=== PATIENT | male | born 1940 | race Caucasian/White ===

== ENCOUNTER → 2016-05-25 | Outpatient (CLI) | payer MEDICARE, BC ==
[2016-05-25 10:34] LABS: Anion Gap 14 mmol/L; Blood Urea Nitrogen 52 mg/dL (9-20); Carbon Dioxide 23 mmol/L (22-30); Chloride 103 mmol/L (98-107); Glucose 220 mg/dL (74-99); Non-African American GFR(MDRD) 57 (>60 ml/min/1.73 sqM); Potassium 6.1 mmol/L (3.5-5.1); Sodium 140 mmol/L (137-145)
== END | disposition home or self-care (01) ==
LOC: LABWHC1 09:16
PROVIDERS: ATTEND Internal Medicine Cardiovascular Disease
DX: I50.9 Heart failure, unspecified (principal)
CPT/HCPCS: 36415; 80048; 83880

== ENCOUNTER → 2016-06-04 | Outpatient (CLI) | payer MEDICARE, BC | END | disposition home or self-care (01) | LOC: LABWHC1 09:04 | PROVIDERS: ATTEND Internal Medicine Cardiovascular Disease | DX: E87.5 Hyperkalemia (principal) | CPT/HCPCS: 36415; 84132 ==

== ENCOUNTER → 2016-06-18 | Outpatient (CLI) | payer MEDICARE, BC ==
[2016-06-18 09:18] LABS: Anisocytosis Slight; CHCM 31.8; HCT 45.3 % (39.0-53.0); HDW 3.35; HGB 14.2 gm/dL (13.0-17.5); Hypochromasia Slight; MCH 24.7 pg (25.0-35.0); MCHC 31.5 g/dL (31.0-37.0); MCV 78.6 fL (80.0-100.0); Mean Platelet Volume 8.1; Microcytosis Slight; RBC 5.76 m/uL (4.30-5.90); WBC 5.8 k/uL (3.8-10.6)
[2016-06-18 09:44] LABS: Anion Gap 10 mmol/L; Blood Urea Nitrogen 44 mg/dL (9-20); Carbon Dioxide 26 mmol/L (22-30); Chloride 105 mmol/L (98-107); Non-African American GFR(MDRD) >60 (>60 ml/min/1.73 sqM); Potassium 4.9 mmol/L (3.5-5.1); Sodium 141 mmol/L (137-145)
== END | disposition home or self-care (01) ==
LOC: LABPAT 08:49
PROVIDERS: ATTEND Internal Medicine Cardiovascular Disease
DX: Z01.812 Encounter for preprocedural laboratory examination (principal); I25.10 Atherosclerotic heart disease of native coronary artery without angina pectoris
CPT/HCPCS: 80051; 82565; 84520; 85027

== ENCOUNTER 2016-06-29 10:49 | Day surgery (SDC) | payer MEDICARE, BC ==
[2016-06-23 17:31] VITALS: BMI 21.9
[~2016-06-29 10:49] MED LIST: ALPRAZolam 0.25 MG TAB PO PRN; ALPRAZolam 0.5 MG TAB PO PRN; ASPIRIN 325 MG TAB PO STA; ATORVASTATIN 80 MG TAB PO STA; NITROGLYCERIN SL TABS 0.4 MG TAB SUBLINGUAL PRN; SODIUM CHLORIDE 0.9% 1,000 ML in EMPTY BAG 1 BAG IV ONE
[2016-06-29 11:25] LABS: Glucose,Whole Blood 265 mg/dL (75-99)
[2016-06-29] MEDS ORDERED: INSULIN LISPRO (humaLOG) 300 UNIT/3 ML VIAL SQ ONE (11:26)
[2016-06-29 11:57] LABS: INR 1.1 (<1.1); Prothrombin Time 10.9 sec (9.0-12.0)
[2016-06-29] MEDS ORDERED: LIDOCAINE 2% INJ 20 MG/ML (20 ML MDV) ONE (14:13)
[2016-06-29] MEDS ORDERED: fentaNYL (PF) 50 MCG/ML 2 ML AMP ONE (14:20)
[2016-06-29] MEDS ORDERED: MIDAZOLAM 2 MG/2 ML VIAL ONE (14:20)
[2016-06-29] MEDS ORDERED: LIDOCAINE 2% INJ 20 MG/ML SQ ONE (14:24)
[2016-06-29] MEDS ORDERED: MIDAZOLAM 2 MG/2 ML VIAL IV ONE (14:24)
[2016-06-29] MEDS ORDERED: fentaNYL (PF) 50 MCG/ML 2 ML AMP IV ONE (14:24)
[2016-06-29] MEDS ORDERED: IOHEXOL 350 MG/ML 100 ML BOTTLE INJ ONE (14:55)
[2016-06-29] MEDS ORDERED: RX INFO: IV CONTRAST WAS GIVEN 1 EACH MISC MISCELLANE PRN (15:22)
[2016-06-29] MEDS ORDERED: SODIUM CHLORIDE 0.9% 1,000 ML IV SCH (15:30)
[2016-06-29 19:52] VITALS: RESP 16; TEMP 97.1
[2016-06-29 20:01] VITALS: BP 125/80; PULSE 68
--- NOTE | 2016-06-29 22:23 | CC ---
Mr. Vaca is a 75-year-old gentleman who recently was found to have cardiomyopathy with severely impaired left ventricular systolic function. In view of that, the patient was advised cardiac catheterization to rule out any significant progression in the coronary artery disease. PROCEDURE: Right groin was prepped and draped in the usual manner and the skin was infiltrated with 2% Xylocaine. The right femoral artery was entered using Seldinger technique. A #6 [place] sheath was placed in. Selective coronary angiography was then performed in multiple projections and left ventricular pressures were obtained. Patient tolerated the procedure well. Sheath was removed and good hemostasis was achieved with the use of Angio-Seal. HEMODYNAMICS: Left ventricular end-diastolic pressure was 8 mmHg to 12 mmHg prior to angiography. No gradient was noted across the aortic valve. SELECTIVE CORONARY ANGIOGRAPHY: Left main coronary artery is normal and patent. LAD is a good-caliber blood vessel and there is evidence of a stent in the mid LAD. There is a mild irregularity of about 30% stenosis in the mid LAD. Distal LAD is normal. Circumflex coronary artery is a good-caliber blood vessel and gives rise to obtuse marginal branch. Circumflex coronary artery and its branches are normal. Right coronary artery is a relatively small-caliber blood vessel and there is evidence of a patent stent in the distal LAD. There is a small-sized PLV branch which has a 70% ostial stenosis. PDA branch is normal. FINAL IMPRESSION: Patient has mild coronary artery disease with 30% stenosis in the mid left anterior descending artery and 70% stenosis in the small-size posterolateral ventricular branch of the right coronary artery. The stents are patent. We will continue the patient on medical treatment.
== END 2016-06-29 19:40 | disposition home or self-care (01) ==
LOC: CATHCVL 10:49 → 3OBS 14:47 → CATHCVL 19:40
PROVIDERS: ATTEND Internal Medicine Cardiovascular Disease
DX: I25.10 Atherosclerotic heart disease of native coronary artery without angina pectoris (principal); Z95.5 Presence of coronary angioplasty implant and graft; I42.9 Cardiomyopathy, unspecified; I11.0 Hypertensive heart disease with heart failure; I50.9 Heart failure, unspecified; E78.2 Mixed hyperlipidemia; I48.91 Unspecified atrial fibrillation; Z79.01 Long term (current) use of anticoagulants; Z79.899 Other long term (current) drug therapy; Z87.891 Personal history of nicotine dependence
CPT/HCPCS: 93458; 85610; C1760; C1894; C1769; J2001; J2250; Q9967; J3010

== ENCOUNTER → 2018-12-19 | Outpatient (CLI) | payer MEDICARE, BC ==
[2018-12-19 18:02] LABS: African American GFR (CKD) 66.7 (60.0-200.0); Anion Gap 12.8 mmol/L (4.00-12.00); BUN/Creat Ratio 27.5 Ratio (12.00-20.00); Calcium 9.6 mg/dL (8.7-10.3); Carbon Dioxide 19.2 mmol/L (21.6-31.8); Potassium 5.2 mmol/L (3.5-5.5)
== END | disposition home or self-care (01) ==
LOC: LABWHC1 08:49
PROVIDERS: ATTEND Internal Medicine Cardiovascular Disease
DX: I50.9 Heart failure, unspecified (principal)
CPT/HCPCS: 36415; 80048

== ENCOUNTER 2019-12-13 17:56 | Inpatient (IN) | payer MEDICARE, BC ==
[2019-12-13 18:11] LABS: Glucose,Whole Blood 207 mg/dL (75-99)
[2019-12-13 18:13] LABS: Basophils # (A) 0.1 k/uL (0-0.2); Basophils % (A) 1 %; Eosinophils # (A) 0.3 k/uL (0-0.7); Eosinophils % (A) 4 %; HCT 44.3 % (39.0-53.0); HGB 14.4 gm/dL (13.0-17.5); Lymphocytes % (A) 22 %; MCH 29.2 pg (25.0-35.0); MCHC 32.6 g/dL (31.0-37.0); MCV 89.6 fL (80.0-100.0); Mean Platelet Volume 9.9; Monocytes # (A) 0.7 k/uL (0-1.0); Monocytes % (A) 8 %; Neutrophils # (A) 5.5 k/uL (1.3-7.7); Neutrophils % (A) 63 %; Platelet Count 159 k/uL (150-450); RBC 4.94 m/uL (4.30-5.90); RDW 13.4 % (11.5-15.5); WBC 8.9 k/uL (3.8-10.6)
[2019-12-13 18:22] LABS: Partial Thromboplastin Time 24.5 sec (22.0-30.0); Prothrombin Time 10.3 sec (9.0-12.0)
[2019-12-13 18:25] LABS: Albumin 4.2 g/dL (3.5-5.0); Calcium 9.4 mg/dL (8.4-10.2); Total Bilirubin 0.7 mg/dL (0.2-1.3); Total Protein 7.1 g/dL (6.3-8.2)
--- NOTE | 2019-12-13 18:25 | ED ---
General Adult HPI - General Chief complaint: Neuro Symptoms/Deficit Stated complaint: rt side weakness Time Seen by Provider: 12/13/19 18:00 Source: patient, EMS Mode of arrival: EMS Limitations: no limitations - History of Present Illness Initial comments: Patient is a 79-year-old male past medical history of A. fib, COPD, diabetes, and hypertension who presents emergency room with reported right-sided facial numbness. Patient reports that the numbness was present yesterday. He went to bed and awoke this morning it was gone. Patient reports around 4 PM it started again. Numbness also includes patient's right upper extremity. No history of CVA or TIA in the past. Patient is on anticoagulation for his A. fib. He denies any weakness in his extremities. No headaches or visual changes. No speech difficulties. Patient denies any chest pain or shortness of breath. Upon arrival to the hospital, it was was noted that the patient was significant bradycardic. Blood pressure stable. He reports that he was recently out of his metoprolol. Normally takes a half dose daily. His primary care physician called in a refill of his prescription for which she started restarted 3 days ago. Denies taking excess of his medications. Denies any new medications. No other alleviating, precipitating or modifying factors - Related Data Home Medications Medication Instructions Recorded Confirmed Fluticasone Nasal [place] [Flonase 2 spray EA NOSTRIL DAILY PRN 04/13/16 12/13/19 Nasal Bradford] Losartan Potassium [Cozaar] 50 mg PO BID 04/13/16 12/13/19 Metoprolol Tartrate [Lopressor] 25 mg PO DAILY 04/13/16 12/13/19 Albuterol Sulfate [Ventolin HFA] 2 puff INHALATION RT-Q6H PRN 06/23/16 12/13/19 Furosemide [Lasix] 40 mg PO DAILY 06/07/17 12/13/19 Apixaban [Eliquis] 5 mg PO BID 12/13/19 12/13/19 Atorvastatin [Lipitor] 40 mg PO DAILY 12/13/19 12/13/19 Cholecalciferol [Vitamin D3 (25 1,000 unit PO DAILY 12/13/19 12/13/19 Mcg = 1000 Iu)] Insulin Glargine,Hum.rec.anlog 15 unit SQ DAILY 12/13/19 12/13/19 [Lantus Solostar] Pioglitazone [Actos] 15 mg PO DAILY 12/13/19 12/13/19 metFORMIN HCL [Glucophage] 500 mg PO BID-W/MEALS 12/13/19 12/13/19 Allergies Allergy/AdvReac Type Severity Reaction Status Date / Time lanolin Allergy Rash/Hives Verified 12/13/19 20:25 pine Allergy Rash/Hives,skin Uncoded 12/13/19 18:02 tenderness Review of Systems ROS Statement: Those systems with pertinent positive or pertinent negative responses have been documented in the HPI. ROS Other: All systems not noted in ROS Statement are negative. Past Medical History Past Medical History: Atrial Fibrillation, Heart Failure, COPD, Diabetes Mellitus, Hearing Disorder / Deafness, Hyperlipidemia, Hypertension, Pneumonia, Prostate Disorder Additional Past Medical History / Comment(s): Gallstone pancreatitis, choledocholithiasi, increased bilirubin/jaundic, yellow jaundice as a child, nonsustained VTach, diabetes-was on insulin-recently taken off diabetic medication after hypoglycemic episode, BPH, hiatal hernia, sinusitis, L eye very limited vision r/t injury as teen, hiatal henia, R eardrum with hole in it- hears very little out of that ear, chronic back pain. History of Any Multi-Drug Resistant Organisms: None Reported Past Surgical History: Appendectomy, Cholecystectomy, Hernia Repair Additional Past Surgical History / Comment(s): ERCP, colonoscopy-normal, 14 hernia repairs, 1998 and 1999 cardiac stents, L arm fractured and repaired with ana, L eye surgery due to trauma, bilateral cataract removal with lens implants. Past Anesthesia/Blood Transfusion Reactions: No Reported Reaction Additional Past Anesthesia/Blood Transfusion Reaction / Comment(s): Pt received blood in the 1960's and had a rash develop. Past Psychological History: No Psychological Hx Reported Smoking Status: Never smoker Past Alcohol Use History: None Reported Past Drug Use History: None Reported - Past Family History Mother Family Medical History: Respiratory Disorder Additional Family Medical History / Comment(s): Mother had lung disease that was attributed to having to light the family home with kerosene lamps. She at the age of 86yrs. Father Family Medical History: Myocardial Infarction ([place]) Additional Family Medical History / Comment(s): Father of a [place] at the age of 44yrs. Brother(s) Additional Family Medical History / Comment(s): CABG General Exam Limitations: no limitations General appearance: alert, in no apparent distress Head exam: Present: atraumatic, normocephalic, normal inspection Eye exam: Present: normal appearance, PERRL, EOMI. Absent: scleral icterus, conjunctival injection, periorbital swelling ENT exam: Present: normal exam, mucous membranes moist Neck exam: Present: normal inspection. Absent: tenderness, meningismus, lymphadenopathy Respiratory exam: Present: normal lung sounds bilaterally. Absent: respiratory distress, wheezes, rales, rhonchi, stridor Cardiovascular Exam: Present: bradycardia, irregular rhythm, normal heart sounds. Absent: systolic murmur, diastolic murmur, rubs, gallop, clicks GI/Abdominal exam: Present: soft, normal bowel sounds. Absent: distended, tenderness, guarding, rebound, rigid Extremities exam: Present: normal inspection, full ROM, normal capillary refill. Absent: tenderness, pedal edema, joint swelling, calf tenderness Back exam: Present: normal inspection Neurological exam: Present: alert, oriented X3, CN II-XII intact, other (tongue is midline, speech is clear, face is symmetric. NIH 0. Intact sensation in all 4 extremities. ) Psychiatric exam: Present: normal affect, normal mood Skin exam: Present: warm, dry, intact, normal color. Absent: rash Course Vital Signs 12/13/19 12/13/19 12/13/19 18:00 19:04 19:49 Temperature 97.4 F L Pulse Rate 38 L 33 L 44 L Respiratory 18 18 16 Rate Blood Pressure 144/115 114/99 177/113 O2 Sat by Pulse 98 97 97 Oximetry 12/13/19 12/13/19 20:00 21:30 Temperature Pulse Rate 44 L 53 L Respiratory 18 16 Rate Blood Pressure 132/110 144/66 O2 Sat by Pulse 96 97 Oximetry - Reevaluation(s) Reevaluation #1: 12/13/[address] victoriano Rebollar about the patient's case. Recommended hydralazine for hypertension. Also recommended treatment for hyperkalemia which the patient received. EKG Findings - EKG Comments: EKG Findings:: EKG demonstrates a flutter with the ventricular rate of 33. QRS 122. QTC of 359. No acute ST segment elevation. PVCs present Medical Decision Making - Medical Decision Making Upon arrival patient is placed into room 5. A thorough history and physical exam was performed. Patient is notably bradycardic. EKG is performed which demonstrates A. fib with a slow ventricular response. A shunt is hypertensive at this time therefore laboratory studies are obtained and the chest x-rays performed. Lab studies are remarkable for a potassium of 6. Patient was given an amp of dextrose, 10 units of insulin and calcium chloride. I did discuss the case with Dr. Hilton at 2009 who recommended holding the patient's medications and treating his hyperkalemia. I also discussed the case with Roxy of [facility] who agreed to admit the patient knowing of his right-sided subjective facial paresthesias. I will consult cardiology. Lytes will be rec hecked at 10:00 pm. Patient agreed to this treatment plan and is currently awaiting a bed on the floor - Lab Data Result diagrams: 12/15/19 07:41 12/15/19 07:41 Lab Results 12/13/19 12/13/19 12/13/19 Range/Units 18:06 18:06 18:06 WBC 8.9 (3.8-10.6) k/uL RBC 4.94 (4.30-5.90) m/uL Hgb 14.4 (13.0-17.5) gm/dL Hct 44.3 (39.0-53.0) % MCV 89.6 (80.0-100.0) fL MCH 29.2 (25.0-35.0) pg MCHC 32.6 (31.0-37.0) g/dL RDW 13.4 (11.5-15.5) % Plt Count 159 (150-450) k/uL Neutrophils % 63 % Lymphocytes % 22 % Monocytes % 8 % Eosinophils % 4 % Basophils % 1 % Neutrophils # 5.5 (1.3-7.7) k/uL Lymphocytes # 2.0 (1.0-4.8) k/uL Monocytes # 0.7 (0-1.0) k/uL Eosinophils # 0.3 (0-0.7) k/uL Basophils # 0.1 (0-0.2) k/uL PT 10.3 (9.0-12.0) sec INR 1.0 (<1.2) APTT 24.5 (22.0-30.0) sec Sodium 136 L (137-145) mmol/L Potassium 6.0 H (3.5-5.1) mmol/L Chloride 107 (98-107) mmol/L Carbon Dioxide 19 L (22-30) mmol/L Anion Gap 10 mmol/L BUN 49 H (9-20) mg/dL Creatinine 1.38 H (0.66-1.25) mg/dL Est GFR (CKD-EPI)AfAm 56 (>60 ml/min/1.73 sqM) Est GFR (CKD-EPI)NonAf 48 (>60 ml/min/1.73 sqM) Glucose 205 H (74-99) mg/dL POC Glucose (mg/dL) (75-99) mg/dL POC Glu Medical Secretary ID Calcium 9.4 (8.4-10.2) mg/dL Magnesium (1.6-2.3) mg/dL Total Bilirubin 0.7 (0.2-1.3) mg/dL AST 22 (17-59) U/L ALT 14 (4-49) U/L Alkaline Phosphatase 98 (38-126) U/L Creatine Kinase 57 (55-170) U/L Troponin I (0.000-0.034) ng/mL NT-Pro-B Natriuret Pep pg/mL Total Protein 7.1 (6.3-8.2) g/dL Albumin 4.2 (3.5-5.0) g/dL TSH (0.465-4.680) mIU/L Free T4 (0.78-2.19) ng/dL 12/13/19 12/13/19 12/13/19 Range/Units 18:06 18:06 18:06 WBC (3.8-10.6) k/uL RBC (4.30-5.90) m/uL Hgb (13.0-17.5) gm/dL Hct (39.0-53.0) % MCV (80.0-100.0) fL MCH (25.0-35.0) pg MCHC (31.0-37.0) g/dL RDW (11.5-15.5) % Plt Count (150-450) k/uL Neutrophils % % Lymphocytes % % Monocytes % % Eosinophils % % Basophils % % Neutrophils # (1.3-7.7) k/uL Lymphocytes # (1.0-4.8) k/uL Monocytes # (0-1.0) k/uL Eosinophils # (0-0.7) k/uL Basophils # (0-0.2) k/uL PT (9.0-12.0) sec INR (<1.2) APTT (22.0-30.0) sec Sodium (137-145) mmol/L Potassium (3.5-5.1) mmol/L Chloride (98-107) mmol/L Carbon Dioxide (22-30) mmol/L Anion Gap mmol/L BUN (9-20) mg/dL Creatinine (0.66-1.25) mg/dL Est GFR (CKD-EPI)AfAm (>60 ml/min/1.73 sqM) Est GFR (CKD-EPI)NonAf (>60 ml/min/1.73 sqM) Glucose (74-99) mg/dL POC Glucose (mg/dL) (75-99) mg/dL POC Glu Medical Secretary ID Calcium (8.4-10.2) mg/dL Magnesium 2.1 (1.6-2.3) mg/dL Total Bilirubin (0.2-1.3) mg/dL AST (17-59) U/L ALT (4-49) U/L Alkaline Phosphatase (38-126) U/L Creatine Kinase (55-170) U/L Troponin I <0.012 (0.000-0.034) ng/mL NT-Pro-B Natriuret Pep 2280 pg/mL Total Protein (6.3-8.2) g/dL Albumin (3.5-5.0) g/dL TSH 5.130 H (0.465-4.680) mIU/L Free T4 2.42 H (0.78-2.19) ng/dL 12/13/19 Range/Units 18:10 WBC (3.8-10.6) k/uL RBC (4.30-5.90) m/uL Hgb (13.0-17.5) gm/dL Hct (39.0-53.0) % MCV (80.0-100.0) fL MCH (25.0-35.0) pg MCHC (31.0-37.0) g/dL RDW (11.5-15.5) % Plt Count (150-450) k/uL Neutrophils % % Lymphocytes % % Monocytes % % Eosinophils % % Basophils % % Neutrophils # (1.3-7.7) k/uL Lymphocytes # (1.0-4.8) k/uL Monocytes # (0-1.0) k/uL Eosinophils # (0-0.7) k/uL Basophils # (0-0.2) k/uL PT (9.0-12.0) sec INR (<1.2) APTT (22.0-30.0) sec Sodium (137-145) mmol/L Potassium (3.5-5.1) mmol/L Chloride (98-107) mmol/L Carbon Dioxide (22-30) mmol/L Anion Gap mmol/L BUN (9-20) mg/dL Creatinine (0.66-1.25) mg/dL Est GFR (CKD-EPI)AfAm (>60 ml/min/1.73 sqM) Est GFR (CKD-EPI)NonAf (>60 ml/min/1.73 sqM) Glucose (74-99) mg/dL POC Glucose (mg/dL) 207 H (75-99) mg/dL POC Glu Medical Secretary ID Ace Drake Calcium (8.4-10.2) mg/dL Magnesium (1.6-2.3) mg/dL Total Bilirubin (0.2-1.3) mg/dL AST (17-59) U/L ALT (4-49) U/L Alkaline Phosphatase (38-126) U/L Creatine Kinase (55-170) U/L Troponin I (0.000-0.034) ng/mL NT-Pro-B Natriuret Pep pg/mL Total Protein (6.3-8.2) g/dL Albumin (3.5-5.0) g/dL TSH (0.465-4.680) mIU/L Free T4 (0.78-2.19) ng/dL Disposition Clinical Impression: Hypertension, Bradycardia, Chronic a-fib Disposition: ADMITTED IP TO THIS HOSP Condition: Serious Is patient prescribed a controlled substance at d/c from ED?: No Decision to Admit Reason: Admit from EC Decision Date: 12/13/19 Decision Time: 20:35
--- NOTE | 2019-12-13 18:27 | CT ---
EXAMINATION TYPE: CT brain wo con DATE OF EXAM: 12/13/2019 COMPARISON: INDICATION: Neuro deficit, Rt side weakness reoccur ing yesterday and today. DLP: 1062.4 mGycm, Automated exposure control for dose reduction was used. CONTRAST: None CT of the brain is performed utilizing 3 mm thick sections through the posterior fossa and 3 mm thick sections through the remaining calvarium. Study is performed within 24 hours of arrival to the hosp ital. No abnormal hyperdensity is present to suggest an acute intracranial hemorrhage. No mass lesion is evident. No acute infarcts are evident. Minimal periventricular white matter hypodensity is present suggesting chronic white matter ischemic changes. Ventricles and sulci are prominent for the patient age. Paranasal sinuses and mastoid air cells within the [id number] are clear. There is been a prior rig ht mastoidectomy. IMPRESSIONS: 1. Atrophy with periventricular white matter ischemic type changes. 2. No acute intracranial process.
--- NOTE | 2019-12-13 18:40 | XR ---
EXAMINATION TYPE: XR chest 2V DATE OF EXAM: 12/13/2019 COMPARISON: 06/13/2017 INDICATION: Altered mental status TECHNIQUE: Frontal and lateral views of the chest are obtained. FINDINGS: The heart size is slightly prominent. The pulmonary vasculature is normal. The lungs are clear. IMPRESSION: 1. Mild cardiomegaly.
[2019-12-13] MEDS ORDERED: CALCIUM CHLORIDE 100 MG/ML 10 ML SYRINGE IVP STA (19:16)
[2019-12-13] MEDS ORDERED: INSULIN REGULAR 100 UNIT/ML VIAL IV ONE (19:17)
[2019-12-13] MEDS ORDERED: DEXTROSE 50% SYRINGE 50 ML IVP STA (19:17)
[2019-12-13 20:00] LABS: Magnesium 2.1 mg/dL (1.6-2.3)
[2019-12-13] MEDS ORDERED: NALOXONE 0.4 MG/ML 1 ML VIAL IV PRN (20:36)
[2019-12-13 20:50] LABS: Appearance,Urine Clear (Clear); Bilirubin,Urine Negative (Negative); Blood,Urine Small (Negative); Color,Urine Yellow; Glucose,Urine (UA) 3+ (Negative); Hyaline Casts,Urine 23 /lpf (0-2); Ketones,Urine Negative (Negative); Leukocyte Esterase,Urine Trace (Negative); Mucus,Urine Rare /hpf; Nitrite,Urine Negative (Negative); Protein,Urine Negative (Negative); RBC,Urine 16 /hpf (0-5); Specific Gravity,Urine 1.012 (1.001-1.035); Urobilinogen,Urine <2.0 mg/dL (<2.0); WBC,Urine 2 /hpf (0-5)
[2019-12-13 21:13] LABS: T4, Free (Free Thyroxine) 2.42 ng/dL (0.78-2.19)
[2019-12-13 21:57] LABS: Calcium 10.9 mg/dL (8.4-10.2); Potassium 5.4 mmol/L (3.5-5.1)
[2019-12-14 05:54] LABS: HCT 41.6 % (39.0-53.0); HGB 13.6 gm/dL (13.0-17.5); MCH 29.2 pg (25.0-35.0); MCHC 32.7 g/dL (31.0-37.0); MCV 89.3 fL (80.0-100.0); Mean Platelet Volume 9.9; Platelet Count 116 k/uL (150-450); RBC 4.65 m/uL (4.30-5.90); RDW 13.5 % (11.5-15.5)
[2019-12-14 06:06] LABS: Calcium 9.8 mg/dL (8.4-10.2); Potassium 4.6 mmol/L (3.5-5.1)
[2019-12-14 06:23] LABS: Basophils # (M) 0.14 k/uL (0-0.2); Eosinophils # (M) 0.21 k/uL (0-0.7); Lymphocytes # (M) 1.26 k/uL (1.0-4.8); Monocytes # (M) 0.56 k/uL (0-1.0); Neutrophils # (M) 4.83 k/uL (1.3-7.7); Neutrophils % (M) 69 %; Nucleated Red Blood Cells 0 /100 WBC (0-0); Total Cells Counted 100
[2019-12-14 06:31] LABS: Glucose,Whole Blood 135 mg/dL (75-99)
[2019-12-14] MEDS: ATORVASTATIN 40 MG TAB PO SCH (09:12)
[2019-12-14] MEDS: LOSARTAN 50 MG TAB PO SCH ×2 (09:12→22:53)
[2019-12-14] MEDS: FUROSEMIDE 40 MG TAB PO SCH (09:12)
[2019-12-14] MEDS: INSULIN DETEMIR (LEVEMIR) 100 UNIT/ML SYR SQ SCH (09:12)
[2019-12-14 12:08] LABS: Glucose,Whole Blood 210 mg/dL (75-99)
[2019-12-14] MEDS: INSULIN ASPART (NovoLOG) 100 UNIT/ML VIAL SQ SCH ×3 (12:35→23:03)
--- NOTE | 2019-12-14 13:26 | CONS ---
CONSULTATION Mr. Vaca is a 79-year-old, who is admitted to hospital with a history of atrial fibrillation, diabetes, hypertension, who presented to hospital primarily with numbness involving the right side of his face and right arm. Had a CT scan of the brain that ruled out an acute CVA. The patient had an issue with his right clavicle and maybe the right arm numbness is somewhat related to it. At the time of my evaluation this morning, patient appears comfortable at rest. Ambulating without any problems. He remains in atrial flutter with very low ventricular rate. His heart rate is in the 30s. This morning the heart rate had improved to the 60s. The patient was on Lopressor at home. We stopped it on this admission. I have been consulted because of the atrial fibrillation with slow ventricular rate. The patient does not have any syncope and I believe the atrial fibrillation is not responsible for his neurological symptoms. CVA evaluation is to be done by the neurologist. PAST MEDICAL HISTORY: Significant for diabetes, hypertension, atrial fibrillation. MEDICATIONS: Include Flonase, Ventolin, Glucophage, Lipitor, Actos, Lasix, Eliquis, Lopressor, Cozaar, insulin. ALLERGIES: THE PATIENT IS ALLERGIC TO LANOLIN AND . FAMILY HISTORY: Is negative for premature coronary artery disease. SOCIAL HISTORY: Negative for smoking, EtOH abuse, or drug abuse. REVIEW OF SYSTEMS: HEENT is unremarkable. Cardiac as described above. Respiratory as described above. GI negative. : Negative. Allergy/Immunology: Negative. Skin negative. Musculoskeletal negative. Endocrine negative. Derm negative. Constitutional negative. ONCOLOGICAL: Negative. ALINING INSPECTOR significant for numbness involving face and right arm. PHYSICAL EXAMINATION: 1. On exam heart rate is 60 beats per minute. Blood pressure is 136, respiratory rate. O2 saturation is 97% on room air. There is no jugular venous distention. Chest exam reveals good air entry bilaterally. Heart sounds irregular rhythm, systolic murmur at the apex. Abdomen is soft. Exam of extremities did not reveal any edema. Peripheral pulses are felt. ALINING INSPECTOR exam did not reveal focal neurological deficits. LABORATORY DATA: Lab show a hemoglobin of 13.6, platelet count is 116, potassium is 4.6, creatinine 0.1. Tropes are negative. I do not see a TSH. ASSESSMENT: 1. Atrial fibrillation with a slow ventricular rate. The patient has permanent atrial fibrillation. 2. Numbness involving right side of the face and arm. Rule out cerebrovascular accident . Neurology is on the case. 3. History of hypertension. MMODL / IJN: [id number] /
[2019-12-14] MEDS ORDERED: FLUTICASONE 50MCG/SPRAY NASAL 16GM EA NOSTRIL PRN (14:36)
[2019-12-14] MEDS ORDERED: ALBUTEROL NEBULIZED 2.5 MG/3 ML INHALATION PRN (14:36)
[2019-12-14] MEDS ORDERED: ALPRAZolam 0.25 MG TAB PO PRN (14:46)
[2019-12-14] MEDS ORDERED: HYDROcodone/APAP 5-325MG 1 EACH TAB PO PRN (14:46)
--- NOTE | 2019-12-14 16:08 | US ---
EXAMINATION TYPE: US carotid duplex BILAT DATE OF EXAM: 12/14/2019 COMPARISON: US CLINICAL HISTORY: stroke. Weakness right side EXAM MEASUREMENTS: RIGHT: Peak Systolic Velocity (PSV) cm/sec ----- Right CCA: 63.6 ----- Right ICA: 103.4 ----- Right ECA: 121.0 ICA/CCA ratio: 1.6 RIGHT: End Diastole cm/sec ----- Right CCA: 16.4 ----- Right ICA: 21.9 ----- Right ECA: 0.0 LEFT: Peak Systolic Velocity (PSV) cm/sec ----- Left CCA: 70.6 ----- Left ICA: 129.1 ----- Left ECA: 85.3 ICA/CCA ratio: 1.8 LEFT: End Diastole cm/sec ----- Left CCA: 10.4 ----- Left ICA: 30.5 ----- Left ECA: 0.0 VERTEBRALS (direction of flow): Right Vertebral: Antegrade Left Vertebral: Antegrade Rhythm: Arrhythmia Heterogeneous plaque bilaterally, left ICA tortuous IMPRESSION: There is antegrade flow in the vertebral arteries. Images and measurements suggest at le ast 50% stenosis in both internal carotid arteries. Bilateral moderate multifocal plaque formation. Criteria for Assigning % of Stenosis / Diameter reduction (Estimation based on the indirect measurements of the internal carotid artery velocities (ICA PSV). 1. Normal (no stenosis)=ICA PSV < 125 cm/s: ratio < 2.0: ICA EDV<40 cm/s. 2. Less than 50% stenosis=ICA PSV < 125 cm/s: ratio < 2.0: ICA EDV<40 cm/s. 3. 50 to 69% stenosis=ICA PSV of 125 to 230 cm/s: ration 2.0 ? 4.0: ICA EDV 40-100 cm/s. 4. Greater than 70% stenosis to near occlusion= ICA PSV > 230 cm/s: ratio > 4.0: ICA EDV > 100 cm/s. 5. Near occlusion= ICA PSV velocities may be low or undetectable: variable ratio and ICA EDV. 6. Total occlusion=unable to detect flow.
--- NOTE | 2019-12-14 16:47 | HP ---
HISTORY AND PHYSICAL DATE OF SERVICE: 12/14/2019 CHIEF COMPLAINT: Difficulty speaking and possible stroke. HISTORY OF PRESENT ILLNESS: This 79-year-old gentleman with a past medical history of multiple medical problems including atrial fibrillation, history of CHF, COPD, diabetes type 2, hypertension, hyperlipidemia, history of gallstone pancreatitis, being followed by Dr. Tellez in the outpatient setting was complaining of numbness of the face which radiated up to the right arm. Patient also had difficulty speaking. Patient came to [facility]. The initial stroke workup is negative. Otherwise, the possibility of TIA is being considered at this time. Patient also had renal failure and as well as multiple electrolytes abnormalities present on admission. The patient is taking apixaban. The TSH is elevated, free T4 indicating sick euthyroid syndrome. The patient also had bradycardia, metoprolol has been stopped. Heart rate was in the 30s. After stopping metoprolol, heart rate is improved to 60s. There is no history of fever, rigors or chills. No history of headache, loss of conscious, seizures at this time. PAST MEDICAL HISTORY: History of atrial ablation, CHF, COPD, diabetes mellitus type 2, hypertension, hyperlipidemia, history of gallstone pancreatitis, history of ERCP. MEDICATIONS: Prior to admission: 1. Flonase 2 sprays p.r.n. 2. Ventolin HFA. 3. Vitamin D3 1000 daily. 4. Glucophage 500 mg with meals. 5. Lipitor 40 mg p.o. daily. 6. Actos 15 mg p.o. daily. 7. Lasix 40 mg p.o. daily. 8. Eliquis 5 mg p.o. b.i.d. 9. Lopressor 25 mg p.o. b.i.d. 10.Cozaar 50 mg p.o. b.i.d. 11.Insulin 15 units subcu daily. ALLERGIES: LANOLIN AND PINE. FAMILY HISTORY: History of lung disease. SOCIAL HISTORY: Previous history of smoking. No history of alcohol intake. REVIEW OF SYSTEMS: ENT diminished vision. Diminished hearing. CARDIOVASCULAR: No angina or palpitations. RESPIRATORY: As mentioned earlier. GI no nausea or vomiting. no dysuria. NERVOUS SYSTEM: As mentioned earlier. ALLERGY/IMMUNOLOGY: No asthma or hayfever. MUSCULOSKELETAL as mentioned earlier. HEMATOLOGY/ONCOLOGY: No history of anemia. ENDOCRINE: History of diabetes. CONSTITUTIONAL: As mentioned earlier. DERMATOLOGY: Negative. RHEUMATOLOGY: Negative. PSYCHIATRIC: As mentioned earlier. PHYSICAL EXAMINATION: Alert and oriented times three. Pulse 59, blood pressure 130/69, respiration 18, temperature 97.4, pulse ox 97% on room air. HEENT: Conjunctivae normal. Oral mucosa moist. NECK is no jugular venous distention. No carotid bruit. No lymph node enlargement. CARDIOVASCULAR: S1, S2 muffled. RESPIRATIONS: Breath sounds diminished in the bases. No rhonchi. No crackles. ABDOMEN: Soft, nontender. No mass palpable. LEGS: No edema NERVOUS SYSTEM: Higher functions as mentioned earlier. Moves all 4 limbs. Otherwise cranial nerves: Minimal facial palsy on the right side. Some dysarthria present and some minimal finger-nose incoordination. Power appears to be normal on both sides. Gait is normal. SKIN: No ulcers, rashes or bleeding. JOINTS: No active deforming arthropathy. LABS: Platelets are 116. Sodium 132, potassium 4.4, creatinine is 1.37. ASSESSMENT: 1. Weakness, numbness of the right side of the face and as well as dysarthria, rule out left hemispheric stroke and acute cerebrovascular accident. 2. Dehydration with acute renal failure, prerenal, acute tubular necrosis, present on admission. 3. Atrial fibrillation with bradycardia. 4. Hyponatremia. 5. Hyperkalemia. 6. Thrombocytopenia. 7. Elevated TSH and free T4 indicating sick euthyroid syndrome. 8. History of atrial fibrillation. 9. History of congestive heart failure, ejection fraction unknown. 10.Chronic obstructive pulmonary disease. 11.Diabetes mellitus type 2. 12.Hard of hearing. 13.Hypertension. 14.Hyperlipidemia. 15.History of gallstone pancreatitis. 16.History of nonsustained ventricular tachycardia. 17.History of benign prostatic hypertrophy. 18.History of cholecystectomy. 19.History of ERCP. 20.Remote history of nicotine dependence. 21.FULL CODE. RECOMMENDATIONS AND DISCUSSION: In this 79-year-old gentleman who presented with multiple complex medical issues, we will monitor the patient closely, continue the current medications, symptomatic treatment. I recommend antiplatelet agents and as well as continue with apixaban. Otherwise, continue with the rest of the medications. Monitor blood sugars closely. IV fluids. Monitor abnormal labs. Creatinine is slightly improving at this time. I would recommend to monitor blood sugars closely. Resume the home medications. Guarded prognosis because of multiple complex medical issues. Further recommendations to follow. A copy of dictation forwarded to Dr. Tellez who is the primary physician. LORIE / LARONN: [id number] /
[2019-12-14 17:19] LABS: Glucose,Whole Blood 93 mg/dL (75-99)
[2019-12-14] MEDS: ASPIRIN 81 MG PO SCH (17:50)
[2019-12-14] MEDS: metFORMIN 500 MG TAB PO SCH (17:50)
[2019-12-14 21:14] LABS: Glucose,Whole Blood 173 mg/dL (75-99)
[2019-12-14 22:53] LABS: Glucose,Whole Blood 132 mg/dL (75-99)
[2019-12-14] MEDS: APIXABAN 5 MG TAB PO SCH (22:53)
[2019-12-15 06:20] LABS: Glucose,Whole Blood 97 mg/dL (75-99)
[2019-12-15] MEDS: INSULIN ASPART (NovoLOG) 100 UNIT/ML VIAL SQ SCH ×4 (06:34→20:52)
[2019-12-15] MEDS: INSULIN DETEMIR (LEVEMIR) 100 UNIT/ML SYR SQ SCH (07:00)
[2019-12-15 08:41] LABS: Basophils # (A) 0.1 k/uL (0-0.2); Basophils % (A) 1 %; Eosinophils # (A) 0.3 k/uL (0-0.7); Eosinophils % (A) 4 %; HCT 47.4 % (39.0-53.0); HGB 15.1 gm/dL (13.0-17.5); Lymphocytes # (A) 1.7 k/uL (1.0-4.8); Lymphocytes % (A) 22 %; MCH 28.6 pg (25.0-35.0); MCHC 31.9 g/dL (31.0-37.0); MCV 89.5 fL (80.0-100.0); Mean Platelet Volume 9.3; Monocytes # (A) 0.5 k/uL (0-1.0); Monocytes % (A) 7 %; Neutrophils # (A) 4.9 k/uL (1.3-7.7); Neutrophils % (A) 64 %; Platelet Count 141 k/uL (150-450); RBC 5.29 m/uL (4.30-5.90); RDW 13.5 % (11.5-15.5); WBC 7.7 k/uL (3.8-10.6)
[2019-12-15 08:55] LABS: Calcium 9.9 mg/dL (8.4-10.2); Potassium 4.5 mmol/L (3.5-5.1)
[2019-12-15] MEDS: ATORVASTATIN 40 MG TAB PO SCH (08:58)
[2019-12-15] MEDS: APIXABAN 5 MG TAB PO SCH ×2 (08:58→20:52)
[2019-12-15] MEDS: metFORMIN 500 MG TAB PO SCH ×2 (08:58→17:37)
[2019-12-15] MEDS: FUROSEMIDE 40 MG TAB PO SCH (08:58)
[2019-12-15] MEDS: PIOGLITAZONE 15 MG TAB PO SCH (08:58)
[2019-12-15] MEDS: ASPIRIN 81 MG PO SCH (08:58)
[2019-12-15] MEDS: CHOLECALCIFEROL 1,000 UNIT TAB PO SCH (08:58)
[2019-12-15] MEDS: LOSARTAN 50 MG TAB PO SCH ×2 (08:58→20:52)
[2019-12-15 11:33] LABS: Glucose,Whole Blood 125 mg/dL (75-99)
--- NOTE | 2019-12-15 11:48 | PN ---
PROGRESS NOTE Pepito is a 79-year-old gentleman who was admitted to hospital with right facial and right arm numbness. He is doing well this morning. I am going to review the echo that was done yesterday. He has carotid stenosis. EXAM: The patient is comfortable at rest. Vital signs are stable. Chest exam reveals good air entry bilaterally. Heart exam reveals first and second heart sounds. No gallop. Exam of extremities did not reveal any edema. Peripheral pulses are felt. CURRENT MEDICATIONS: Include Eliquis 5 b.i.d., aspirin, Lipitor, Lasix, insulin, Cozaar, and Actos. ASSESSMENT: 1. Right facial and right arm numbness awaiting Neurology input. 2. Permanent atrial fibrillation with controlled ventricular rate. PLAN: Patient is on Eliquis which we will continue. I am going to review the echocardiogram. MMODL / IJN: [id number] /
[2019-12-15 12:03] LABS: Glucose,Whole Blood 109 mg/dL (75-99)
--- NOTE | 2019-12-15 12:52 | ECHOF ---
Referral Reason:lv function MEASUREMENTS -------- HEIGHT: 170.2 cm WEIGHT: 67.1 kg BP: 131/67 RVIDd: 3.8 cm (< 3.3) IVSd: 1.4 cm (0.6 - 1.1) LVIDd: 4.1 cm (3.9 - 5.3) LVPWd: 1.7 cm (0.6 - 1.1) IVSs: 1.6 cm LVIDs: 3.9 cm LVPWs: 1.3 cm LA Diam: 5.3 cm (2.7 - 3.8) LAESV Index (A-L): 79.43 ml/m Ao Diam: 4.0 cm (2.0 - 3.7) AV Cusp: 1.9 cm (1.5 - 2.6) MV EXCURSION: 16.009 mm (> 18.000) MV EF SLOPE: 89 mm/s (70 - 150) EPSS: 1.5 cm MV E Dario: 0.97 m/s MV DecT: 164 ms MV A Dario: 0.01 m/s MV E/A Ratio: 66.17 AV maxP.37 mmHg AV meanP.44 mmHg RAP: 5.00 mmHg RVSP: 43.94 mmHg FINDINGS -------- Atrial fibrillation. This was a technically adequate study. The left ventricular size is normal. There is mild concentric left ventricular hypertrophy. Overa ll left ventricular systolic function is low-normal with, an EF between 50 - 55 %. The right ventricle is normal in size. The left atrium is markedly dilated. LA is severely dilated >40 ml/m2 The right atrial size is normal. There is mild aortic regurgitation. There is mild aortic stenosis present. Peak/mean gradient acr oss the Aortic Valve is 25.37mmHg / 12.44mmHg. Mild mitral annular calcification present. Wgkh-ub-zaptfofs mitral regurgitation is present. Mild tricuspid regurgitation present. There is mild to moderate pulmonary hypertension. The right ventricular systolic pressure, as measured by Doppler, is 43.94mmHg. Trace/mild (physiologic) pulmonic regurgitation. The aortic root size is normal. There is no pericardial effusion. CONCLUSIONS -------- 1. The left ventricular size is normal. 2. There is mild concentric left ventricular hypertrophy. 3. Overall left ventricular systolic function is low-normal with, an EF between 50 - 55 %. 4. The right ventricle is normal in size. 5. The left atrium is markedly dilated. 6. LA is severely dilated >40 ml/m2 7. The right atrial size is normal. 8. There is mild aortic regurgitation. 9. There is mild aortic stenosis present. 10. Peak/mean gradient across the Aortic Valve is 25.37mmHg / 12.44mmHg. 11. Mild mitral annular calcification present. 12. Mqlf-ok-jtwcuvnt mitral regurgitation is present. 13. Mild tricuspid regurgitation present. 14. There is mild to moderate pulmonary hypertension. 15. The right ventricular systolic pressure, as measured by Doppler, is 43.94mmHg. 16. Trace/mild (physiologic) pulmonic regurgitation. KITCHEN DESIGNER: Yandy Spence RDCS
--- NOTE | 2019-12-15 13:00 | CT ---
EXAMINATION TYPE: CT brain wo con for TPA DATE OF EXAM: 12/15/2019 COMPARISON: Previous study dated 12/13/2019 HISTORY: CODE STROKE CT DLP: 1096.8 mGycm Automated exposure control for dose reduction was used. FINDINGS: There are generalized changes of sulcal prominence and ventriculomegaly, compatible with atrophy. The re is diffuse periventricular white matter lucency, compatible with chronic white matter ischemic kiesha nge. There is no acute focal lesion, mass effect or midline shift. I do not see evidence of intracran ial blood. Paranasal sinuses and left mastoid air cells are normal. I suspect is been a previous mastoidectomy o n the right. IMPRESSION: 1. NO ACUTE INTRACRANIAL ABNORMALITY. 2. DEGENERATIVE CHANGE. 3. I SUSPECT THERE IS BEEN A PREVIOUS RIGHT-SIDED MASTOIDECTOMY.
--- NOTE | 2019-12-15 13:24 | CT ---
EXAMINATION TYPE: CODE STROKE: CTA head neck DATE OF EXAM: 12/15/2019 HISTORY: Acute facial paresthesia, acute bradycardia COMPARISON: CT scan of the brain from earlier today. CT DLP: 402.7 mGycm. Automated Exposure Control for Dose Reduction was Utilized. TECHNIQUE: CTA scan of the neck is performed without and with IV Contrast, patient injected with 65 ml mL of Isovue 370, axial images are obtained, coronal and sagittal reformatted images are reviewed. Three-D reconstructed images are created on an independent workstation and reviewed. FINDINGS: Visualized portions of the lungs are clear. The paranasal sinuses are clear. There is been a previous right mastoidectomy. Vertebral body height and alignment are maintained. Atlantoaxial relationships are normal. There is d egenerative disc disease at C4-5 and C5-6 and also less prominent C6-7. There is moderate atheromatous calcification at the carotid bulbs bilaterally. The vertebral arteries are codominant. There is no hemodynamically significant stenosis on the right. There is approximately 10% by diameter stenosis on the left. There is considerable carotid calcification within the petrous bone and the cavernous sinus. No occlu mala is identified. Both anterior cerebral arteries are patent. There is normal arborization of the m iddle cerebral artery. The posterior circulation is a normal appearance. IMPRESSION: 1. NO SIGNIFICANT STENOSIS IN EITHER CAROTID SYSTEM. 2. NORMAL CTA OF THE [place].
--- NOTE | 2019-12-15 15:03 | PN ---
PROGRESS NOTE DATE OF SERVICE: 12/15/2019 This 79-year-old gentleman admitted with difficulty in speaking, possible stroke had complaints of some dizziness. Stroke code was called today and CT brain was repeated which showed no acute intracranial abnormality. Previous right-sided mastoidectomy was suspected and CT angiography of the brain was also noted which showed no significant stenosis and normal CT of the [place] of [place]. The patient being closely monitored. Past medical history reviewed. REVIEW OF SYSTEMS: Cardiovascular: No angina, palpitations. Respiratory: As mentioned earlier. GI: No nausea or vomiting. no dysuria. NERVOUS SYSTEM: No numbness or weakness. CURRENT MEDICATIONS: Reviewed and include: 1. [place]. 2. Ventolin. 3. Xanax. 4. Eliquis. 5. Aspirin. 6. Lipitor. 7. Vitamin D3. 8. Lasix. 9. Levemir. 10.Cozaar. 11.Glucophage. 12.Narcan. 13.Actos. PHYSICAL EXAMINATION: Alert and oriented times three. Pulse 72, blood pressure 130/78, respiration 16. Temperature 96.8, pulse ox 98% on room air. HEENT is conjunctivae normal. Oral mucosa moist. NECK is no jugular venous distention. No carotid bruit. No lymph node enlargement. CARDIOVASCULAR: S1, S2 muffled. RESPIRATION: Breath sounds diminished in the bases. No rhonchi. No crackles. ABDOMEN: Soft, nontender. No mass palpable. LEGS: No edema. No swelling. NERVOUS SYSTEM as mentioned earlier. Mild incoordination. Mild facial flattening of the right also present. Gait dysfunction also present. Gait unsteadiness present. LABS: WBC 7.7, hemoglobin 15.1, platelets 141. Glucose is 107. ASSESSMENT: 1. Weakness and numbness of the right side of the face and dysarthria, possibly left hemispheric stroke with acute cerebrovascular accident. 2. Dehydration with acute renal failure, acute tubular necrosis present on admission. 3. Atrial fibrillation with bradycardia. 4. Hyponatremia. 5. Hyperkalemia. 6. Thrombocytopenia. 7. Elevated TSH and free T4 indicating sick euthyroid syndrome. 8. History of atrial fibrillation, chronic. 9. History of congestive heart failure, ejection fraction unknown. 10.Chronic obstructive pulmonary disease. 11.Diabetes mellitus type 2. 12.Hard of hearing. 13.Hypertension. 14.Gait dysfunction. 15.Hyperlipidemia. 16.History of gallstone pancreatitis. 17.History of nonsustained ventricular tachycardia. 18.History of benign prostatic hypertrophy. 19.History of cholecystectomy. 20.History of ERCP. 21.History of nicotine dependence. 22.FULL CODE. RECOMMENDATIONS AND DISCUSSION: In this 79-year-old gentleman who presented with multiple medical issues, at this time, I recommend to continue the current medications, continue with symptomatic treatment. Continue with antiplatelet agents. Stroke code has been called. We will await the full report and neurology consultation has been sought. Continue the neuro checks. Prognosis guarded. Further recommendations to follow. The patient is currently stable. MMODL / IJN: [id number] /
[2019-12-15 16:31] LABS: Glucose,Whole Blood 179 mg/dL (75-99)
[2019-12-15 20:21] LABS: Glucose,Whole Blood 141 mg/dL (75-99)
[2019-12-16 06:25] LABS: Glucose,Whole Blood 133 mg/dL (75-99)
[2019-12-16] MEDS: INSULIN DETEMIR (LEVEMIR) 100 UNIT/ML SYR SQ SCH (06:42)
[2019-12-16] MEDS: INSULIN ASPART (NovoLOG) 100 UNIT/ML VIAL SQ SCH ×4 (06:43→20:41)
[2019-12-16 07:37] LABS: Basophils # (A) 0.1 k/uL (0-0.2); Basophils % (A) 1 %; Eosinophils # (A) 0.3 k/uL (0-0.7); Eosinophils % (A) 4 %; HCT 46.8 % (39.0-53.0); HGB 15.2 gm/dL (13.0-17.5); Lymphocytes # (A) 1.7 k/uL (1.0-4.8); Lymphocytes % (A) 22 %; MCHC 32.5 g/dL (31.0-37.0); MCV 89.3 fL (80.0-100.0); Mean Platelet Volume 9.5; Monocytes # (A) 0.6 k/uL (0-1.0); Monocytes % (A) 8 %; Neutrophils # (A) 5.1 k/uL (1.3-7.7); Neutrophils % (A) 64 %; Platelet Count 134 k/uL (150-450); RBC 5.24 m/uL (4.30-5.90); RDW 13.5 % (11.5-15.5); WBC 7.9 k/uL (3.8-10.6)
[2019-12-16 08:47] LABS: Calcium 9.8 mg/dL (8.4-10.2); Potassium 4.4 mmol/L (3.5-5.1)
[2019-12-16] MEDS: ATORVASTATIN 40 MG TAB PO SCH (09:01)
[2019-12-16] MEDS: FUROSEMIDE 40 MG TAB PO SCH (09:01)
[2019-12-16] MEDS: PIOGLITAZONE 15 MG TAB PO SCH (09:01)
[2019-12-16] MEDS: APIXABAN 5 MG TAB PO SCH ×2 (09:01→20:11)
[2019-12-16] MEDS: CHOLECALCIFEROL 1,000 UNIT TAB PO SCH (09:01)
[2019-12-16] MEDS: LOSARTAN 50 MG TAB PO SCH ×2 (09:01→20:11)
[2019-12-16] MEDS: ASPIRIN 81 MG PO SCH (09:01)
--- NOTE | 2019-12-16 09:47 | P.PN ---
Subjective Progress Note Date: 12/16/19 Principal diagnosis: Long-standing persistent atrial fibrillation This is a 79-year-old female with long-standing persistent atrial fibrillation on oral anticoagulation who was admitted to the hospital with right arm and right leg numbness. The patient was seen this morning. Overall he seems to be stable from a cardiac vascular standpoint overview. He continues to be in atrial fibrillation was controlled heart rate. He is on oral anticoagulation as well. He underwent an echocardiogram which revealed normal LV function was mild aortic stenosis. The carotid duplex study was unremarkable. The computed tomography scan of the head was unremarkable as well. Objective - Vital Signs Vital signs: Vital Signs Temp 97.5 F L 12/16/19 04:00 Pulse 69 12/16/19 04:00 Resp 18 12/16/19 04:00 BP 137/65 12/16/19 04:00 Pulse Ox 98 12/16/19 04:00 Intake & Output 12/15/19 12/16/19 12/16/19 18:59 06:59 18:59 Intake Total 480 980 Output Total 1550 350 100 Balance -1070 -350 880 Weight 58 kg Intake: Oral 480 980 Output: Urine 1550 350 100 Other: Voiding Method Urinal # Voids 1 1 - Constitutional General appearance: Present: no acute distress - Respiratory Respiratory: bilateral: CTA - Cardiovascular Rhythm: irregularly irregular Heart sounds: normal: S1, S2 Abnormal Heart Sounds: Present: systolic murmur - Labs CBC & Chem 7: 12/16/19 07:27 12/16/19 07:27 Labs: Abnormal Lab Results - Last 24 Hours (Table) 12/15/19 12/15/19 12/15/19 Range/Units 11:31 12:01 16:30 Plt Count (150-450) k/uL Chloride (98-107) mmol/L BUN (9-20) mg/dL Glucose (74-99) mg/dL POC Glucose (mg/dL) 125 H 109 H 179 H (75-99) mg/dL 12/15/19 12/16/19 12/16/19 Range/Units 20:19 06:22 07:27 Plt Count 134 L (150-450) k/uL Chloride (98-107) mmol/L BUN (9-20) mg/dL Glucose (74-99) mg/dL POC Glucose (mg/dL) 141 H 133 H (75-99) mg/dL 12/16/19 Range/Units 07:27 Plt Count (150-450) k/uL Chloride 108 H (98-107) mmol/L BUN 46 H (9-20) mg/dL Glucose 122 H (74-99) mg/dL POC Glucose (mg/dL) (75-99) mg/dL Assessment and Plan Assessment: Assessment #1 right arm and right leg numbness of unknown etiology at this point #2 long-standing persistent atrial fibrillation was controlled heart rate Plan #1 continue the current medical regimen including oral anticoagulation #2 follow-up with the patient
[2019-12-16 11:59] LABS: Glucose,Whole Blood 155 mg/dL (75-99)
--- NOTE | 2019-12-16 12:11 | P.CNNES ---
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 Some of the history was retrieved by the medical records since the patient has a severe hearing loss and that was a heart obtained from the patient. According to the medical documentation his symptoms was present the night before and the next morning was gone then at 4 PM started again. Per the patient he thinks he had the numbness of the right face upper and lower extremity for at least 3 days but to be longer but not sure. He also states that his symptoms has read is progressively getting worse. He does feel his right side is weak. As well as some difficulty getting his words out time to time. Ration does not have history of CVA or TIA in the past per medical documentation. He denies of any headache any new visual change. He is deaf on the right ear for at least 10 years and he has severe hearing loss on the left ear. 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 He resides with his . He does take at the [facility] then 5 mg twice a day and he states that he has not missed his medication. He is also on the Lipitor 40 mg daily. Hospital workup: CT of the head 12/13/19 was reported as atrophy of the periventricular white matter ischemic type changes. No acute intracranial process. Carotid duplex was reported as there is anterior grade flow in the vertebral arteries. Images and measurements suggest at least 50% stenosis in both internal carotid arteries. Bilateral moderate multifocal plaque formation. EKG showed atrial flutter with variable AV block with ventricular escape complexes. Anterior infarct age undetermined. T wave abnormality consider inferior ischemia. Ventricle rate was 33 bpm. The echocardiogram was reported as left ventricle size is normal. There is mild concentric left ventricular hypertrophy. Ejection fraction of between 50-55%. The left atrium was markedly dilated. There is mild to moderate mitral regurgitation. Per the patient's nurse the patient stated the on 12/15/2019 around noon he is having worsening of his numbness on the right side so stroke pager was activated so that he had a repeated CT of the head did not show any acute intracranial abnormality. It showed degenerative changes. And that it's mentioned that suspect there is a previous right sided mastoidectomy. CT angiogram of the head and neck was reported as no significant stenosis in either carotid system. It's reported as normal CT angiogram of [place]. Review of Systems Review of system: The 12 point system was reviewed and apparent positive and negative per HPI. Past Medical History Past Medical History: Atrial Fibrillation, Heart Failure, COPD, Diabetes Mellitus, Hearing Disorder / Deafness, Hyperlipidemia, Hypertension, Pneumonia, Prostate Disorder Additional Past Medical History / Comment(s): Gallstone pancreatitis, choledocholithiasi, increased bilirubin/jaundic, yellow jaundice as a child, nonsustained VTach, diabetes-was on insulin-recently taken off diabetic medication after hypoglycemic episode, BPH, hiatal hernia, sinusitis, L eye very limited vision r/t injury as teen, hiatal henia, R eardrum with hole in it-hears very little out of that ear, chronic back pain. History of Any Multi-Drug Resistant Organisms: None Reported Past Surgical History: Appendectomy, Cholecystectomy, Hernia Repair Additional Past Surgical History / Comment(s): ERCP, colonoscopy-normal, 14 hernia repairs, 1998 and 1999 cardiac stents, L arm fractured and repaired with ana, L eye surgery due to trauma, bilateral cataract removal with lens implants. Past Anesthesia/Blood Transfusion Reactions: No Reported Reaction Additional Past Anesthesia/Blood Transfusion Reaction / Comment(s): Pt received blood in the 1960's and had a rash develop. Past Psychological History: No Psychological Hx Reported Smoking Status: Never smoker Past Alcohol Use History: None Reported Past Drug Use History: None Reported - Past Family History Mother Family Medical History: Respiratory Disorder Additional Family Medical History / Comment(s): Mother had lung disease that was attributed to having to light the family home with kerosene lamps. She at the age of 86yrs. Father Family Medical History: Myocardial Infarction (NE) Additional Family Medical History / Comment(s): Father of a NE at the age of 44yrs. Brother(s) Additional Family Medical History / Comment(s): CABG Medications and Allergies Home Medications Medication Instructions Recorded Confirmed Type Fluticasone Nasal [place] [Flonase 2 spray EA NOSTRIL DAILY PRN 04/13/12/13/19 History Nasal [place]] Losartan Potassium [Cozaar] 50 mg PO BID 04/13/16 12/13/19 History Metoprolol Tartrate [Lopressor] 25 mg PO DAILY 04/13/16 12/13/19 History Albuterol Sulfate [Ventolin HFA] 2 puff INHALATION RT-Q6H PRN 06/23/16 12/13/19 History Furosemide [Lasix] 40 mg PO DAILY 06/07/17 12/13/19 History Apixaban [Eliquis] 5 mg PO BID 12/13/19 12/13/19 History Atorvastatin [Lipitor] 40 mg PO DAILY 12/13/19 12/13/19 History Cholecalciferol [Vitamin D3 (25 1,000 unit PO DAILY 12/13/19 12/13/19 History Mcg = 1000 Iu)] Insulin Glargine,Hum.rec.anlog 15 unit SQ DAILY 12/13/19 12/13/19 History [Lantus Solostar] Pioglitazone [Actos] 15 mg PO DAILY 12/13/19 12/13/19 History metFORMIN HCL [Glucophage] 500 mg PO BID-W/MEALS 12/13/19 12/13/19 History Allergies Allergy/AdvReac Type Severity Reaction Status Date / Time lanolin Allergy Rash/Hives Verified 12/13/19 20:25 pine Allergy Rash/Hives,skin Uncoded 12/13/19 18:02 tenderness Physical Examination - Vital Signs Vital Signs: Vital Signs Temp Pulse Pulse Resp BP BP Pulse Ox 12/16/19 08:00 98.0 F 72 123/73 98 12/16/19 04:00 97.5 F L 69 18 137/65 98 12/16/19 00:00 98.1 F 73 18 134/83 97 12/15/19 23:38 98.1 F 73 18 134/83 95 12/15/19 20:00 98.1 F 77 18 140/72 98 12/15/19 16:00 72 109/78 96 12/15/19 15:38 68 122/74 97 12/15/19 14:38 62 123/56 98 12/15/19 13:38 78 100/60 96 12/15/19 12:38 66 135/79 12/15/19 12:23 67 126/75 12/15/19 12:08 71 160/87 12/15/19 12:03 63 159/95 99 12/15/19 12:00 68 Intake and Output 12/15/19 12/16/19 12/16/19 22:59 06:59 14:59 Intake Total 240 980 Output Total 300 250 100 Balance -60 -250 880 Intake: Oral 240 980 Output: Urine 300 250 100 Other: Voiding Method Urinal Urinal # Voids 1 1 Weight 58 kg GENERAL: The patient is lying in bed and is not in acute distress. CHEST: The heart rate is irregular irregular. No carotid bruit bilaterally. LUNG: Clear to auscultation bilaterally no wheezing noted throughout. Not labored breathing. ABDOMEN/GI: Bowel sounds present in all 4 quadrants. No tenderness to palpation throughout. NEUROLOGICAL: Higher mental function: The patient is awake, alert, oriented to self, place and time. Patient is following commands. No aphasia and no neglect. Cranial nerves: The pupils are round, equal and reactive to light and accommodation. 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 Extraocular movement is intact no nystagmus is noted. Facial sensation is decrease to touch on entire right side. The facial strength is normal throughout. Hearing: Deaf on right ear and severe hearing loss on the left. Tongue is midline and moved [id number]-gd-[id number] without any difficulty. No dysarthria is noted. Shoulder shrug is normal bilaterally. Motor: The strength is 5 over 5 throughout. Normal tone and bulk. Cerebellum: Normal finger to nose heel to chin bilaterally. Sensation: Sensation is decrease on entire right upper adn lower extremity to touch. Reflexes (right/left): 2+ throughout except at ankles were 0-1 bilaterally. Plantars are mute bilaterally. Results PT of 10.3, INR 1.0, PTT is 24.5. - Laboratory Findings CBC and BMP: 12/16/19 07:27 12/16/19 07:27 Abnormal Lab Findings: Abnormal Labs 12/13/19 12/13/19 12/13/19 18:06 18:06 18:10 Plt Count Sodium 136 L Potassium 6.0 H Chloride Carbon Dioxide 19 L BUN 49 H Creatinine 1.38 H Glucose 205 H POC Glucose (mg/dL) 207 H Calcium TSH 5.130 H Free T4 2.42 H Urine Glucose (UA) Urine Blood Ur Leukocyte Esterase Urine RBC Hyaline Casts Urine Mucus 12/13/19 12/13/19 12/14/19 20:38 21:07 05:34 Plt Count 116 L Sodium 135 L Potassium 5.4 H Chloride 109 H Carbon Dioxide 20 L BUN 49 H Creatinine 1.37 H Glucose 171 H POC Glucose (mg/dL) Calcium 10.9 H TSH Free T4 Urine Glucose (UA) 3+ H Urine Blood Small H Ur Leukocyte Esterase Trace H Urine RBC 16 H Hyaline Casts 23 H Urine Mucus Rare H 12/14/19 12/14/19 12/14/19 05:34 06:24 12:04 Plt Count Sodium Potassium Chloride 111 H Carbon Dioxide 21 L BUN 45 H Creatinine Glucose 121 H POC Glucose (mg/dL) 135 H 210 H Calcium TSH Free T4 Urine Glucose (UA) Urine Blood Ur Leukocyte Esterase Urine RBC Hyaline Casts Urine Mucus 12/14/19 12/14/19 12/15/19 21:13 22:51 07:41 Plt Count 141 L Sodium Potassium Chloride Carbon Dioxide BUN Creatinine Glucose POC Glucose (mg/dL) 173 H 132 H Calcium TSH Free T4 Urine Glucose (UA) Urine Blood Ur Leukocyte Esterase Urine RBC Hyaline Casts Urine Mucus 12/15/19 12/15/19 12/15/19 07:41 11:31 12:01 Plt Count Sodium Potassium Chloride Carbon Dioxide BUN 39 H Creatinine Glucose 107 H POC Glucose (mg/dL) 125 H 109 H Calcium TSH Free T4 Urine Glucose (UA) Urine Blood Ur Leukocyte Esterase Urine RBC Hyaline Casts Urine Mucus 12/15/19 12/15/19 12/16/19 16:30 20:19 06:22 Plt Count Sodium Potassium Chloride Carbon Dioxide BUN Creatinine Glucose POC Glucose (mg/dL) 179 H 141 H 133 H Calcium TSH Free T4 Urine Glucose (UA) Urine Blood Ur Leukocyte Esterase Urine RBC Hyaline Casts Urine Mucus 12/16/19 12/16/19 07:27 07:27 Plt Count 134 L Sodium Potassium Chloride 108 H Carbon Dioxide BUN 46 H Creatinine Glucose 122 H POC Glucose (mg/dL) Calcium TSH Free T4 Urine Glucose (UA) Urine Blood Ur Leukocyte Esterase Urine RBC Hyaline Casts Urine Mucus Assessment and Plan Assessment: 79-year-old right-handed gentleman with a history of atrial fibrillation, diabetes, hypertension, deaf on right ear and severe hearing loss on left ear, 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 Symptoms was present the night before and the next morning was gone then at 4 PM started again. He has numbness of the right face upper and lower extremity for at least 3 days but to be longer but not sure. He also states that his symptoms has read is progressively getting worse. He does feel his right side is weak. As well as some difficulty getting his words out time to time. NIH Stroke scale 1 (numbness) Right sided sensory loss (face, right upper and lower extremity) and on exam felt had field cut on right upper quadrant and ?entire upper on left (near to legally blind) seems stroke Atrial fibrillation DM HTN Deaf on right ear and severe hearing loss on left Plan: Stroke work-up include: MR the brain:pending CT of the head 12/13/19 was reported as atrophy of the periventricular white matter ischemic type changes. No acute intracranial process. Carotid duplex was reported as there is anterior grade flow in the vertebral arteries. Images and measurements suggest at least 50% stenosis in both internal carotid arteries. Bilateral moderate multifocal plaque formation. EKG showed atrial flutter with variable AV block with ventricular escape complexes. Anterior infarct age undetermined. T wave abnormality consider inferior ischemia. Ventricle rate was 33 bpm. The echocardiogram was reported as left ventricle size is normal. There is mild concentric left ventricular hypertrophy. Ejection fraction of between 50-55%. The left atrium was markedly dilated. There is mild to moderate mitral regurgitation. Per the patient's nurse the patient stated the on 12/15/2019 around noon he is having worsening of his numbness on the right side so stroke pager was activated so that he had a repeated CT of the head did not show any acute intracranial abnormality. It showed degenerative changes. And that it's mentioned that suspect there is a previous right sided mastoidectomy. CT angiogram of the head and neck was reported as no significant stenosis in either carotid system. It's reported as normal CT angiogram of [place]. TSH of 5.130. Free T4 is 2.42. Fasting lipid profile; HbA1c: pending; cardiac monitoring. Continue on Apixaban 5mg bid and ASA 81mg was added. Continue Lipitor 40mg daily with target LDL less than 70. PT/OT are on board. Thank you for the consult Antolin Causey MD Neuro-hospitalist Time with Patient: Greater than 30
[2019-12-16 12:56] LABS: Cholesterol 158 mg/dL (<200); HDL Cholesterol 27 mg/dL (40-60); LDL Cholesterol,Calculated 101 mg/dL (0-99); Triglycerides 150 mg/dL (<150)
--- NOTE | 2019-12-16 14:27 | MR ---
EXAMINATION TYPE: MR brain wo/w con DATE OF EXAM: 12/16/2019 1:58 PM COMPARISON: NONE HISTORY: Rule out stroke FINDINGS: The ventricles, basal cisterns and sulci overlying the cerebral convexities are mildly enlarged. There is evidence of mild periventricular white matter ischemic demyelination. Remote deep white matter insults are also noted. Small focus of acute edema involving the left thalamus compatible with acute vascular insult. No amisha tional areas of abnormal diffusion weighted imaging. There is no evidence for midline shift or mass effect. Acute intracranial hemorrhage or extra-axial collection is not evident. The paranasal sinuses and mastoid air cells are well-aerated. IMPRESSION: Small focus of acute edema involving the left thalamus compatible with acute vascular insult. No amisha tional areas of abnormal diffusion weighted imaging.
--- NOTE | 2019-12-16 14:31 | P.PN ---
Subjective Progress Note Date: 12/16/19 Principal diagnosis: This is a 79-year-old male was recently admitted with difficulty in speaking, possible stroke with some dizziness and is being closely monitored. Patient is being evaluated by neurology. MRI of the brain is ordered and currently pending at this time. Per nursing staff patient was having some worsening symptoms of right-sided facial drooping with right-sided upper and lower extremity weakness in a code stroke was called. Repeat CT of the head was done showing no acute intracranial abnormality noted. CTA was done as well showing no significant stenosis in either carotid system along with a normal CT of the [place]. Patient is scheduled to undergo MRI today. Patient continues to have right-sided upper and lower extremity weakness and gait dysfunction. Creatinine slightly elevated at 1.24. Metformin discontinued will continue a sliding scale. Will repeat a.m. labs. Patient has been initiated on a statin along with continued aspirin and Eliquis at this time. Review of systems: Constitutional: No reports of fatigue, fevers, or chills Cardiovascular: No reports of chest pain or palpitations Respiratory: No reports of shortness of breath or cough GI: No reports of nausea, vomiting, or diarrhea : No reports of dysuria or retention Neurovascular: Reports right-sided weakness of the upper and lower extremities, no reports of numbness Active Medications Hydrocodone Bitart/Acetaminophen ([place] 5-325) 1 each PO Q6HR PRN PRN Reason: Pain Albuterol Sulfate (Ventolin Nebulized) 2.5 mg INHALATION RT-Q6H PRN PRN Reason: Shortness Of Breath Alprazolam (Xanax) 0.25 mg PO TID PRN PRN Reason: Anxiety Apixaban (Eliquis) 5 mg PO BID [facility] Last Admin: 12/16/19 09:01 Dose: 5 mg Documented by: Aspirin (Aspirin) 81 mg PO DAILY [facility] Last Admin: 12/16/19 09:01 Dose: 81 mg Documented by: Atorvastatin Calcium (Lipitor) 40 mg PO DAILY [facility] Last Admin: 12/16/19 09:01 Dose: 40 mg Documented by: Cholecalciferol (Vitamin D3 (25 Mcg = 1000 Iu)) 1,000 unit PO DAILY [facility] Last Admin: 12/16/19 09:01 Dose: 1,000 unit Documented by: Fluticasone Propionate (Flonase Nasal [place]) 2 spray EA NOSTRIL DAILY PRN PRN Reason: Congestion Furosemide (Lasix) 40 mg PO DAILY [facility] Last Admin: 12/16/19 09:01 Dose: 40 mg Documented by: Insulin Aspart (Novolog) 0 unit SQ ACHS [facility]; Protocol Last Admin: 12/16/19 12:26 Dose: 1 unit Documented by: Insulin Detemir (Levemir) 15 unit SQ DAILY@0700 [facility] Last Admin: 12/16/19 06:42 Dose: 15 unit Documented by: Losartan Potassium (Cozaar) 50 mg PO BID [facility] Last Admin: 12/16/19 09:01 Dose: 50 mg Documented by: Naloxone HCl (Narcan) 0.2 mg IV Q2M PRN PRN Reason: Opioid Reversal Pioglitazone HCl (Actos) 15 mg PO DAILY [facility] Last Admin: 12/16/19 09:01 Dose: 15 mg Documented by: Objective - Vital Signs Vital signs: Vital Signs Temp 98.0 F 12/16/19 08:00 Pulse 72 12/16/19 08:00 Resp 18 12/16/19 04:00 BP 123/73 12/16/19 08:00 Pulse Ox 98 12/16/19 08:00 Intake & Output 12/15/19 12/16/19 12/16/19 18:59 06:59 18:59 Intake Total 480 980 Output Total 1550 350 100 Balance -1070 -350 880 Weight 58 kg Intake: Oral 480 980 Output: Urine 1550 350 100 Other: Voiding Method Urinal # Voids 1 1 - Exam Gen: This is a 79-year-old male sitting up in the chair, awake, alert and oriented 3, well-developed, well-nourished. Patient is hard of hearing. Temp is 98F, pulse is 72, respirations are 18, blood pressure is 123/73, oxygen saturation is 98% on 2 L via nasal cannula. HEENT: Head is atraumatic, normocephalic. Pupils equal, round. Sclerae is anicteric. NECK: Supple. No JVD. No lymphadenopathy. No thyromegaly. LUNGS: Breath sounds diminished bilaterally with no wheezing or rhonchi noted. No intercostal retractions. HEART: S1, S2 are muffled ABDOMEN: Soft. Bowel sounds are present. No masses. No tenderness. EXTREMITIES: No pedal edema. No calf tenderness. NEUROLOGICAL: Patient is awake, alert and oriented x3. Diffusely weak. Gait dysfunction noted with right side upper and lower extremity weakness - Labs CBC & Chem 7: 12/16/19 07:27 12/16/19 07:27 Labs: Abnormal Lab Results - Last 24 Hours (Table) 12/15/19 12/15/19 12/16/19 Range/Units 16:30 20:19 06:22 Plt Count (150-450) k/uL Chloride (98-107) mmol/L BUN (9-20) mg/dL Glucose (74-99) mg/dL POC Glucose (mg/dL) 179 H 141 H 133 H (75-99) mg/dL 12/16/19 12/16/19 12/16/19 Range/Units 07:27 07:27 11:58 Plt Count 134 L (150-450) k/uL Chloride 108 H (98-107) mmol/L BUN 46 H (9-20) mg/dL Glucose 122 H (74-99) mg/dL POC Glucose (mg/dL) 155 H (75-99) mg/dL Assessment and Plan Assessment: Weakness and numbness of the right side of the face and dysarthria, possibly left hemispheric stroke with acute cerebrovascular accident Dehydration with acute renal failure, acute tubular necrosis, present on admission Atrial fibrillation with bradycardia hyponatremia, improved Hyperkalemia, improved Thrombocytopenia Elevated TSH and free T4 indicating sick euthyroid syndrome History of atrial fibrillation, chronic history of congestive heart failure, ejection fraction unknown Chronic obstructive pulmonary disease Diabetes mellitus type 2 [place] of hearing hypertension Gait dysfunction Hyperlipidemia history of gallstone pancreatitis History of nonsustained ventricular tachycardia history of benign prostatic hypertrophy history of cholecystectomy History of ERCP History of nicotine dependence Full code Recommendations and discussion: Recommend to continue current medications, management, and symptomatic treatment. Neurology consulted and following. Patient awaiting to undergo MRI today. To continue with neuro checks and monitor closely. Creatinine slightly elevated at 1.24 with a BUNs of 46. Will repeat a.m. labs. Continue to monitor blood sugars closely and treat accordingly with sliding scale along with long- acting insulin. Metformin is on hold at this time. Cardiology also following. Will await brain MRI report. Case management and social work following for possible inpatient rehab for continued PT/OT therapy once stabilized and discharged. Due to multiple complex medical issues, prognosis is guarded. Further recommendations to follow.
--- NOTE | 2019-12-16 15:31 | P.CON ---
Consult Note - . Assessment/Plan:: Patient unavailable for consult. Will return as able.
[2019-12-16 16:36] LABS: Hemoglobin A1C 6.6 % (4.0-6.0)
[2019-12-16 16:42] LABS: Glucose,Whole Blood 260 mg/dL (75-99)
[2019-12-16 20:27] LABS: Glucose,Whole Blood 182 mg/dL (75-99)
[2019-12-17 06:15] LABS: Basophils % (A) 1 %; Eosinophils # (A) 0.3 k/uL (0-0.7); Eosinophils % (A) 4 %; HCT 46.1 % (39.0-53.0); HGB 14.9 gm/dL (13.0-17.5); Lymphocytes # (A) 1.5 k/uL (1.0-4.8); Lymphocytes % (A) 20 %; MCH 28.9 pg (25.0-35.0); MCHC 32.4 g/dL (31.0-37.0); MCV 89.2 fL (80.0-100.0); Mean Platelet Volume 9.7; Monocytes # (A) 0.7 k/uL (0-1.0); Monocytes % (A) 9 %; Neutrophils # (A) 4.9 k/uL (1.3-7.7); Neutrophils % (A) 64 %; Platelet Count 119 k/uL (150-450); RBC 5.17 m/uL (4.30-5.90); RDW 13.5 % (11.5-15.5); WBC 7.7 k/uL (3.8-10.6)
[2019-12-17 06:24] LABS: Calcium 9.5 mg/dL (8.4-10.2); Potassium 4.4 mmol/L (3.5-5.1)
[2019-12-17 07:05] LABS: Glucose,Whole Blood 121 mg/dL (75-99)
[2019-12-17] MEDS: INSULIN ASPART (NovoLOG) 100 UNIT/ML VIAL SQ SCH ×4 (07:07→22:05)
[2019-12-17] MEDS: INSULIN DETEMIR (LEVEMIR) 100 UNIT/ML SYR SQ SCH (07:10)
[2019-12-17] MEDS: LOSARTAN 50 MG TAB PO SCH ×2 (08:40→20:18)
[2019-12-17] MEDS: CHOLECALCIFEROL 1,000 UNIT TAB PO SCH (08:40)
[2019-12-17] MEDS: ASPIRIN 81 MG PO SCH (08:40)
[2019-12-17] MEDS: APIXABAN 5 MG TAB PO SCH ×2 (08:40→20:18)
[2019-12-17] MEDS: FUROSEMIDE 40 MG TAB PO SCH (08:40)
[2019-12-17] MEDS: ATORVASTATIN 40 MG TAB PO SCH (08:40)
[2019-12-17] MEDS: PIOGLITAZONE 15 MG TAB PO SCH (08:41)
--- NOTE | 2019-12-17 08:47 | P.PN ---
Subjective Progress Note Date: 12/17/19 Principal diagnosis: Long-standing persistent atrial fibrillation This is a 79-year-old female with long-standing persistent atrial fibrillation on oral anticoagulation who was admitted to the hospital with right arm and right leg numbness. The patient was seen today, December 162019. He stated that the right side numbness has improved. Otherwise and from the cardiac vascular standpoint overview, he is asymptomatic. No chest pain or chest discomfort or shortness of breath or heart racing or fluttering. Hemodynamically he continues to be stable. The heart rate is under good control on the current medical regimen. Also he continues to be on oral anticoagulation. He underwent an echocardiogram which revealed normal LV function was evidence of mild aortic stenosis. Objective - Vital Signs Vital signs: Vital Signs Temp 97.6 F 12/17/19 04:00 Pulse 58 L 12/17/19 04:00 Resp 18 12/17/19 04:00 BP 145/76 12/17/19 04:00 Pulse Ox 98 12/17/19 04:00 Intake & Output 12/16/19 12/17/19 12/17/19 18:59 06:59 18:59 Intake Total 1460 840 Output Total 200 100 100 Balance 1260 740 -100 Weight 55.5 kg Intake: Oral 1460 840 Output: Urine 200 100 100 Other: Voiding Method Urinal # Voids 1 1 - Constitutional General appearance: Present: no acute distress - Respiratory Respiratory: bilateral: CTA - Cardiovascular Rhythm: irregularly irregular Heart sounds: normal: S1, S2 Abnormal Heart Sounds: Present: systolic murmur - Labs CBC & Chem 7: 12/17/19 05:45 12/17/19 05:45 Labs: Abnormal Lab Results - Last 24 Hours (Table) 12/15/19 12/16/19 12/16/19 Range/Units 07:41 07:27 07:27 Plt Count (150-450) k/uL Chloride 108 H (98-107) mmol/L BUN 46 H (9-20) mg/dL Creatinine (0.66-1.25) mg/dL Glucose 122 H (74-99) mg/dL POC Glucose (mg/dL) (75-99) mg/dL Hemoglobin A1c 6.6 H (4.0-6.0) % Triglycerides 150 H (<150) mg/dL LDL Cholesterol, Calc 101 H (0-99) mg/dL HDL Cholesterol 27 L (40-60) mg/dL 12/16/19 12/16/19 12/16/19 Range/Units 11:58 16:39 20:26 Plt Count (150-450) k/uL Chloride (98-107) mmol/L BUN (9-20) mg/dL Creatinine (0.66-1.25) mg/dL Glucose (74-99) mg/dL POC Glucose (mg/dL) 155 H 260 H 182 H (75-99) mg/dL Hemoglobin A1c (4.0-6.0) % Triglycerides (<150) mg/dL LDL Cholesterol, Calc (0-99) mg/dL HDL Cholesterol (40-60) mg/dL 12/17/19 12/17/19 12/17/19 Range/Units 05:45 05:45 07:03 Plt Count 119 L (150-450) k/uL Chloride (98-107) mmol/L BUN 53 H (9-20) mg/dL Creatinine 1.28 H (0.66-1.25) mg/dL Glucose 115 H (74-99) mg/dL POC Glucose (mg/dL) 121 H (75-99) mg/dL Hemoglobin A1c (4.0-6.0) % Triglycerides (<150) mg/dL LDL Cholesterol, Calc (0-99) mg/dL HDL Cholesterol (40-60) mg/dL Assessment and Plan Assessment: Assessment #1 right arm and right leg numbness of unknown etiology at this point #2 long-standing persistent atrial fibrillation was controlled heart rate Plan #1 continue the current medical regimen including oral anticoagulation #2 follow-up with the patient
--- NOTE | 2019-12-17 11:26 | P.CONS ---
History of Present Illness - Chief Complaint Gait disturbance, right hemiparesthesias - History of Present Illness I had the opportunity to see patient for inpatient rehab consultation with regard to gait disturbance. He was admitted December 12 acute onset right- sided weakness and facial numbness. Seen by neurology, Dr. Antolin Flores, who concurred with diagnosis stroke. Seen by cardiology for atrial fibrillation. Chest x-ray shows mild cardiomegaly. Head CT with atrophy and periventricular white matter change as well as possible previous right mastoidectomy. Carotid Doppler with 50% stenosis right and left internal carotid. Angiogram CT normal. Brain MRI with left thalamic edema. PT reports moderate assistance for bed mobility, transfers, gait 35 feet with roller walker and poor balance. OT reports minimal assist upper and lower dressing and toileting and moderate assistance bathing and functional abilities and transfers. I believe patient had recent admission for left great toe cellulitis. Previous functional history as elicited patient: 79-year-old right-handed white male who is lives in one floor home with . Both retired. does cooking and laundry. Patient was independent with driving, standing shower and gait without device. PMD Dr. Tellez. History of smoking in distant past and denies alcohol. Family history father with heart disease. Review of Systems Review of systems: ENT: Denies sneezes or discharge. Eyes: Denies discharge or photophobia. Cardiac: Denies chest pain or palpitation. Pulmonary: Denies cough or shortness of breath. Gastrointestinal: Denies nausea, emesis, constipation, diarrhea. Genitourinary: Denies discharge or frequency. Musculoskeletal: Denies muscle or bone aches. Neurologic: Right-sided weakness and numbness which is very frustrating to patient. Endocrine: Denies shakes or sweats. Oncology: Denies cancers. Dermatologic: Denies rash, itching, pruritus. ALLERGY/immunology: Denies sneezes, rashes. Past Medical History Past Medical History: Atrial Fibrillation, Heart Failure, COPD, Diabetes Mellitus, Hearing Disorder / Deafness, Hyperlipidemia, Hypertension, Pneumonia, Prostate Disorder Additional Past Medical History / Comment(s): Gallstone pancreatitis, choledocholithiasi, increased bilirubin/jaundic, yellow jaundice as a child, nonsustained VTach, diabetes-was on insulin-recently taken off diabetic medic ation after hypoglycemic episode, BPH, hiatal hernia, sinusitis, L eye very limited vision r/t injury as teen, hiatal henia, R eardrum with hole in it-hears very little out of that ear, chronic back pain. History of Any Multi-Drug Resistant Organisms: None Reported Past Surgical History: Appendectomy, Cholecystectomy, Hernia Repair Additional Past Surgical History / Comment(s): ERCP, colonoscopy-normal, 14 hernia repairs, 1998 and 1999 cardiac stents, L arm fractured and repaired with ana, L eye surgery due to trauma, bilateral cataract removal with lens implants. Past Anesthesia/Blood Transfusion Reactions: No Reported Reaction Additional Past Anesthesia/Blood Transfusion Reaction / Comm: Pt received blood in the s and had a rash develop. Past Psychological History: No Psychological Hx Reported Smoking Status: Never smoker Past Alcohol Use History: None Reported Past Drug Use History: None Reported - Past Family History Mother Family Medical History: Respiratory Disorder Additional Family Medical History / Comment(s): Mother had lung disease that was attributed to having to light the family home with kerosene lamps. She at the age of 86yrs. Father Family Medical History: Myocardial Infarction ([place]) Additional Family Medical History / Comment(s): Father of a [place] at the age of 44yrs. Brother(s) Additional Family Medical History / Comment(s): CABG Medications and Allergies Home Medications Medication Instructions Recorded Confirmed Type Fluticasone Nasal [place] [Flonase 2 spray EA NOSTRIL DAILY PRN 04/13/16 12/13/19 History Nasal [place]] Losartan Potassium [Cozaar] 50 mg PO BID 04/13/16 12/13/19 History Metoprolol Tartrate [Lopressor] 25 mg PO DAILY 04/13/16 12/13/19 History Albuterol Sulfate [Ventolin HFA] 2 puff INHALATION RT-Q6H PRN 06/23/16 12/13/19 History Furosemide [Lasix] 40 mg PO DAILY 06/07/17 12/13/19 History Apixaban [Eliquis] 5 mg PO BID 12/13/19 12/13/19 History Atorvastatin [Lipitor] 40 mg PO DAILY 12/13/19 12/13/19 History Cholecalciferol [Vitamin D3 (25 1,000 unit PO DAILY 12/13/19 12/13/19 History Mcg = 1000 Iu)] Insulin Glargine,Hum.rec.anlog 15 unit SQ DAILY 12/13/19 12/13/19 History [Lantus Solostar] Pioglitazone [Actos] 15 mg PO DAILY 12/13/19 12/13/19 History metFORMIN HCL [Glucophage] 500 mg PO BID-W/MEALS 12/13/19 12/13/19 History Allergies Allergy/AdvReac Type Severity Reaction Status Date / Time lanolin Allergy Rash/Hives Verified 12/13/19 20:25 pine Allergy Rash/Hives,skin Uncoded 12/13/19 18:02 tenderness Physical Exam Vitals: Vital Signs Temp Pulse Resp BP Pulse Ox 12/17/19 04:00 97.6 F 58 L 18 145/76 98 12/16/19 23:16 55 L 16 12/16/19 23:15 97.6 F 55 L 16 140/75 97 12/16/19 20:00 97.7 F 74 18 129/77 96 12/16/19 16:00 71 95 12/16/19 12:00 75 123/62 97 Intake and Output 12/16/19 12/17/19 12/17/19 22:59 06:59 14:59 Intake Total 540 300 240 Output Total 100 100 Balance 440 300 140 Intake: Oral 540 300 240 Output: Urine 100 100 Other: Voiding Method Urinal Urinal # Voids 1 1 1 Weight 55.5 kg Skin: Atrophic, intact. General: Medium build and comfortable appearance. Head: Normocephalic, atraumatic. Eyes: Symmetric. Pupils equal round. Ears: Symmetric. Hearing diminished bilateral. Mouth: Clear. Neck: Supple. Carotid without bruit. Cardiac: Regular rate and rhythm. Lungs: Clear anteriorly and posteriorly. Abdomen: Soft active nontender. Extremities: Normal tone. Neurological: Mental status: Alert, cooperative, pleasant. Cranial nerves: Symmetric facial tone and trapezius. Motor: Normal strength and isolation all 4 limbs. Apraxia right side with 4/5 weakness right foot and ankle and 4+/5 right hand. Sensation: Intact left side and slightly depressed right side per patient. DTRs: Symmetric and equal throughout. Mobility: Requires physical assist for mobility in room. Results CBC & Chem 7: 12/17/19 05:45 12/17/19 05:45 Labs: Abnormal Lab Results - Last 24 Hours (Table) 12/15/19 12/16/19 12/16/19 Range/Units 07:41 07:27 11:58 Plt Count (150-450) k/uL BUN (9-20) mg/dL Creatinine (0.66-1.25) mg/dL Glucose (74-99) mg/dL POC Glucose (mg/dL) 155 H (75-99) mg/dL Hemoglobin A1c 6.6 H (4.0-6.0) % Triglycerides 150 H (<150) mg/dL LDL Cholesterol, Calc 101 H (0-99) mg/dL HDL Cholesterol 27 L (40-60) mg/dL 12/16/19 12/16/19 12/17/19 Range/Units 16:39 20:26 05:45 Plt Count 119 L (150-450) k/uL BUN (9-20) mg/dL Creatinine (0.66-1.25) mg/dL Glucose (74-99) mg/dL POC Glucose (mg/dL) 260 H 182 H (75-99) mg/dL Hemoglobin A1c (4.0-6.0) % Triglycerides (<150) mg/dL LDL Cholesterol, Calc (0-99) mg/dL HDL Cholesterol (40-60) mg/dL 12/17/19 12/17/19 Range/Units 05:45 07:03 Plt Count (150-450) k/uL BUN 53 H (9-20) mg/dL Creatinine 1.28 H (0.66-1.25) mg/dL Glucose 115 H (74-99) mg/dL POC Glucose (mg/dL) 121 H (75-99) mg/dL Hemoglobin A1c (4.0-6.0) % Triglycerides (<150) mg/dL LDL Cholesterol, Calc (0-99) mg/dL HDL Cholesterol (40-60) mg/dL Assessment and Plan (1) Chronic a-fib Current Visit: Yes Status: Acute Code(s): I48.20 - CHRONIC ATRIAL FIBRILLATION, UNSPECIFIED SNOMED Code(s): 058944900 (2) Gangrene of toe of left foot Current Visit: No Status: Acute Code(s): I96 - GANGRENE, NOT ELSEWHERE CLASSIFIED SNOMED Code(s): 51106176741763423 Plan: Impression: 1. Gait disturbance with stroke and right hemiparesthesias. 2. Left great toe cellulitis. 3. Hypertension. 4. Diabetes. 5. Atrial fibrillation. 6. COPD. 7. CHF. 8. Deafness. Comments and plan: At this time PT and OT are ongoing and safety concerns noted. His demonstrated ability tolerate and benefit from therapies discussed inpatient rehabilitation. He seems agreeable. Should note that patient is quite frustrated with regard to his deficits which is consistent with a patient with milder deficits of stroke.
[2019-12-17 12:15] LABS: Glucose,Whole Blood 174 mg/dL (75-99)
--- NOTE | 2019-12-17 13:03 | P.PN ---
Subjective Progress Note Date: 12/17/19 Principal diagnosis: This is a 79-year-old male was recently admitted with difficulty in speaking, possible stroke with some dizziness and is being closely monitored. Patient is being evaluated by neurology. MRI of the brain is ordered and currently pending at this time. Per nursing staff patient was having some worsening symptoms of right-sided facial drooping with right-sided upper and lower extremity weakness in a code stroke was called. Repeat CT of the head was done showing no acute intracranial abnormality noted. CTA was done as well showing no significant stenosis in either carotid system along with a normal CT of the [place]. Patient is scheduled to undergo MRI today. Patient continues to have right-sided upper and lower extremity weakness and gait dysfunction. Creatinine slightly elevated at 1.24. Metformin discontinued will continue a sliding scale. Will repeat a.m. labs. Patient has been initiated on a statin along with continued aspirin and Eliquis at this time. Review of systems: Constitutional: No reports of fatigue, fevers, or chills Cardiovascular: No reports of chest pain or palpitations Respiratory: No reports of shortness of breath or cough GI: No reports of nausea, vomiting, or diarrhea : No reports of dysuria or retention Neurovascular: Reports right-sided weakness of the upper and lower extremities, no reports of numbness 12/17/2019 Patient is seen and evaluated and follow-up is currently being monitored closel y. Multiple medical consultations including cardiology and neuro are following. A consult was placed for Dr. Donald as patient is being evaluated for inpatient rehab for continued right sided weakness due to a recent stroke. Patient underwent MRI of the brain showing a small focus of acute edema involving the left thalamus compatible with acute vascular insult and evidence of mild periventricular white matter ischemic demyelination, and ventricles, basal cisterns and foci overlying the cerebral convexities are mildly enlarged. Patient continues to have some right upper extremity weakness although states it is slightly improved and he was able to eat with the right hand today. Continues to have right lower extremity weakness and states there is some tingling and numbness noted. PT/OT following. Patient continues to have some dizziness and unsteady gait. Currently patient denies any chest pain, shortness of breath, or palpitations. Patient is afebrile. No reports of nausea or vo miting and patient is tolerating diet. Creatinine slightly elevated at 1.28. Will continue to monitor closely. Objective - Vital Signs Vital signs: Vital Signs Temp 97.6 F 12/17/19 04:00 Pulse 58 L 12/17/19 04:00 Resp 18 12/17/19 04:00 BP 145/76 12/17/19 04:00 Pulse Ox 98 12/17/19 04:00 Intake & Output 12/16/19 12/17/19 12/17/19 18:59 06:59 18:59 Intake Total 1460 840 240 Output Total 200 100 100 Balance 1260 740 140 Weight 55.5 kg Intake: Oral 1460 840 240 Output: Urine 200 100 100 Other: Voiding Method Urinal # Voids 1 1 - Exam Gen: This is a 79-year-old male sitting up in the chair, awake, alert and oriented 3, well-developed, well-nourished. Patient is hard of hearing. Temp is 97.6F, pulse is 63, respirations are 18, blood pressure is 119/66, oxygen saturation is 98% on room air HEENT: Head is atraumatic, normocephalic. Pupils equal, round. Sclerae is anicteric. NECK: Supple. No JVD. No lymphadenopathy. No thyromegaly. LUNGS: Breath sounds diminished bilaterally with no wheezing or rhonchi noted. No intercostal retractions. HEART: S1, S2 are muffled ABDOMEN: Soft. Bowel sounds are present. No masses. No tenderness. EXTREMITIES: No pedal edema. No calf tenderness. NEUROLOGICAL: Patient is awake, alert and oriented x3. Diffusely weak. Gait dysfunction noted with right side upper and lower extremity weakness. [employer] strength of the right upper extremity is 5/5, right lower extremity strength is 4/5. - Labs CBC & Chem 7: 12/17/19 05:45 12/17/19 05:45 Labs: Abnormal Lab Results - Last 24 Hours (Table) 12/15/19 12/16/19 12/16/19 Range/Units 07:41 07:27 11:58 Plt Count (150-450) k/uL BUN (9-20) mg/dL Creatinine (0.66-1.25) mg/dL Glucose (74-99) mg/dL POC Glucose (mg/dL) 155 H (75-99) mg/dL Hemoglobin A1c 6.6 H (4.0-6.0) % Triglycerides 150 H (<150) mg/dL LDL Cholesterol, Calc 101 H (0-99) mg/dL HDL Cholesterol 27 L (40-60) mg/dL 12/16/19 12/16/19 12/17/19 Range/Units 16:39 20:26 05:45 Plt Count 119 L (150-450) k/uL BUN (9-20) mg/dL Creatinine (0.66-1.25) mg/dL Glucose (74-99) mg/dL POC Glucose (mg/dL) 260 H 182 H (75-99) mg/dL Hemoglobin A1c (4.0-6.0) % Triglycerides (<150) mg/dL LDL Cholesterol, Calc (0-99) mg/dL HDL Cholesterol (40-60) mg/dL 12/17/19 12/17/19 Range/Units 05:45 07:03 Plt Count (150-450) k/uL BUN 53 H (9-20) mg/dL Creatinine 1.28 H (0.66-1.25) mg/dL Glucose 115 H (74-99) mg/dL POC Glucose (mg/dL) 121 H (75-99) mg/dL Hemoglobin A1c (4.0-6.0) % Triglycerides (<150) mg/dL LDL Cholesterol, Calc (0-99) mg/dL HDL Cholesterol (40-60) mg/dL Assessment and Plan Assessment: Weakness and numbness of the right side of the face and dysarthria, possibly left hemispheric stroke with acute cerebrovascular accident Dehydration with acute renal failure, acute tubular necrosis, present on admission Atrial fibrillation with bradycardia hyponatremia, improved Hyperkalemia, improved Thrombocytopenia Elevated TSH and free T4 indicating sick euthyroid syndrome History of atrial fibrillation, chronic history of congestive heart failure, chronic diastolic dysfunction, recent echo on 12/14/2019 shows overall left ventricular systolic function is low to normal with an EF between 50 and 55% Chronic obstructive pulmonary disease Diabetes mellitus type 2 [place] of hearing hypertension Gait dysfunction Hyperlipidemia history of gallstone pancreatitis History of nonsustained ventricular tachycardia history of benign prostatic hypertrophy history of cholecystectomy History of ERCP History of nicotine dependence Full code Recommendations and discussion: Recommend to continue current medications, management, and symptomatic treatment. Neurology consulted and following. Patient underwent MRI of the brain as mentioned previously. To continue with neuro checks and monitor closely. Will repeat a.m. labs. Continue to monitor blood sugars closely and treat accordingly with sliding scale along with long-acting insulin. Cardiology also following. Dr. Donald evaluated the patient for inpatient rehab at [facility]. Case management and social work following for possible inpatient rehab for continued PT/OT therapy once stabilized and discharged. Due to multiple complex medical issues, prognosis is guarded. Further recommendations to follow. Possible discharge in 24-48 hours.
[2019-12-17 16:44] LABS: Glucose,Whole Blood 235 mg/dL (75-99)
--- NOTE | 2019-12-17 19:48 | P.PN ---
Subjective Progress Note Date: 12/17/19 Principal diagnosis: Acute stroke (symptoms of right sided senosry loss). Patient is at bedside and states he continues to have numbness on entire right side of face and right side of upper and lower extremity. He denies paresthesia feeling or pain sensation on the right side. He feel it is somewhat improving. He did have MRI of the brain which did show an acute stroke on the left thalamus. Objective - Vital Signs Vital signs: Vital Signs Temp 97.6 F 12/17/19 04:00 Pulse 57 L 12/17/19 16:00 Resp 18 12/17/19 16:00 BP 104/58 12/17/19 16:00 Pulse Ox 100 12/17/19 16:00 Intake & Output 12/16/19 12/17/19 12/17/19 18:59 06:59 18:59 Intake Total 3658 609 5087 Output Total 200 100 500 Balance 1260 740 880 Weight 55.5 kg Intake: Oral 8266 240 9273 Output: Urine 200 100 500 Other: Voiding Method Urinal Urinal # Voids 1 1 - Exam GENERAL: The patient is lying in bed and is not in acute distress. CHEST: No murmurs to auscultation. LUNG: Clear to auscultation bilaterally no wheezing noted throughout. Not labored breathing. ABDOMEN/GI: Bowel sounds present in all 4 quadrants. No tenderness to palpation throughout. NEUROLOGICAL: Higher mental function: The patient is awake, alert, oriented to self, place and time. Patient is following commands. No aphasia and no neglect. Cranial nerves: The pupils are round, equal and reactive to light and accommodation. Visual salazar: right upper temporal quadrant anopsia and entire left upper field anopsia (legally blind) but was not consistent with upper field. Extraocular movement is intact no nystagmus is noted. Facial sensation: decrease to touch on entire right face. The facial strength is normal throughout. Heariing: Deaf on the right ear and severe hearing loss on the left. Tongue is midline and moved [id number] without any difficulty. No dysarthria is noted. Shoulder shrug is normal bilaterally. Motor: The strength is 5 over 5 throughout. Normal tone and bulk. Cerebellum: Normal finger to nose heel to chin bilaterally. Sensation: Sensation was decreased to touch on entire right upper and lower extremity. Reflexes (right/left): 2+ all over except at anlkles was 0-1 Plantars are mute bilaterally. - Labs CBC & Chem 7: 12/17/19 05:45 12/17/19 05:45 Labs: Abnormal Lab Results - Last 24 Hours (Table) 12/16/19 12/17/19 12/17/19 Range/Units 20:26 05:45 05:45 Plt Count 119 L (150-450) k/uL BUN 53 H (9-20) mg/dL Creatinine 1.28 H (0.66-1.25) mg/dL Glucose 115 H (74-99) mg/dL POC Glucose (mg/dL) 182 H (75-99) mg/dL 12/17/19 12/17/19 12/17/19 Range/Units 07:03 12:13 16:43 Plt Count (150-450) k/uL BUN (9-20) mg/dL Creatinine (0.66-1.25) mg/dL Glucose (74-99) mg/dL POC Glucose (mg/dL) 121 H 174 H 235 H (75-99) mg/dL Assessment and Plan Assessment: 79-year-old right-handed gentleman with a history of atrial fibrillation, diabetes, hypertension, deaf on right ear and severe hearing loss on left ear, 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 Symptoms was present the night before and the next morning was gone then at 4 PM started again. He has numbness of the right face upper and lower extremity for at least 3 days but to be longer but not sure. He also states that his symptoms has read is progressively getting worse. He does feel his right side is weak. As well as some difficulty getting his words out time to time. NIH Stroke scale 1 (numbness) Acute stroke in the left thalamus (Right sided sensory loss (face, right upper and lower extremity). Etiology of stroke likely small vessel disease Atrial fibrillation DM HTN Deaf on right ear and severe hearing loss on left Elevated HbA1c suggestive of newly diagnosed DM Plan: Stroke work-up include: MR the brain:small focus of acute edema involving the left thalamus, compatible with acute vascular insult. CT of the head 12/13/19 was reported as atrophy of the periventricular white matter ischemic type changes. No acute intracranial process. Carotid duplex was reported as there is anterior grade flow in the vertebral arteries. Images and measurements suggest at least 50% stenosis in both internal carotid arteries. Bilateral moderate multifocal plaque formation. EKG showed atrial flutter with variable AV block with ventricular escape complexes. Anterior infarct age undetermined. T wave abnormality consider inferior ischemia. Ventricle rate was 33 bpm. The echocardiogram was reported as left ventricle size is normal. There is mild concentric left ventricular hypertrophy. Ejection fraction of between 50-55%. The left atrium was markedly dilated. There is mild to moderate mitral regurgitation. Per the patient's nurse the patient stated the on 12/15/2019 around noon he is having worsening of his numbness on the right side so stroke pager was activated so that he had a repeated CT of the head did not show any acute intracranial abnormality. It showed degenerative changes. And that it's mentioned that suspect there is a previous right sided mastoidectomy. CT angiogram of the head and neck was reported as no significant stenosis in either carotid system. It's reported as normal CT angiogram of [place]. TSH of 5.130. Free T4 is 2.42. Fasting lipid profile: Triglyceride of 150, cholesterol is 158, LDL is 101, HDL 27. Hemoglobin A1c of 6.6 cardiac monitoring. Continue on Apixaban 5mg bid and ASA 81mg was added. Continue Lipitor 40mg daily with target LDL less than 70. PT/OT are on board. Because the hemoglobin A1c is 6.6 is elevated, he is considered diabetic and we'll defer the management to the primary care Antolin Causey MD Neuro-hospitalist Time with Patient: Greater than 30
[2019-12-17 20:29] LABS: Glucose,Whole Blood 229 mg/dL (75-99)
[2019-12-18 07:05] LABS: Glucose,Whole Blood 124 mg/dL (75-99)
[2019-12-18] MEDS: INSULIN ASPART (NovoLOG) 100 UNIT/ML VIAL SQ SCH ×2 (07:07→12:32)
[2019-12-18] MEDS: INSULIN DETEMIR (LEVEMIR) 100 UNIT/ML SYR SQ SCH (07:11)
[2019-12-18] MEDS: CHOLECALCIFEROL 1,000 UNIT TAB PO SCH (08:38)
[2019-12-18] MEDS: ASPIRIN 81 MG PO SCH (08:38)
[2019-12-18] MEDS: FUROSEMIDE 40 MG TAB PO SCH (08:38)
[2019-12-18] MEDS: LOSARTAN 50 MG TAB PO SCH (08:38)
[2019-12-18] MEDS: APIXABAN 5 MG TAB PO SCH (08:38)
[2019-12-18] MEDS: ATORVASTATIN 40 MG TAB PO SCH (08:38)
[2019-12-18] MEDS: PIOGLITAZONE 15 MG TAB PO SCH (08:41)
--- NOTE | 2019-12-18 10:39 | P.PN ---
Subjective Progress Note Date: 12/18/19 Principal diagnosis: Long-standing persistent atrial fibrillation This is a 79-year-old female with long-standing persistent atrial fibrillation on oral anticoagulation who was admitted to the hospital with right arm and right leg numbness. The patient was seen today, December 172019. From the cardiovascular standpoint of view, he is asymptomatic. He can be discharged home Objective - Vital Signs Vital signs: Vital Signs Temp 97.6 F 12/18/19 08:33 Pulse 59 L 12/18/19 08:35 Resp 17 12/18/19 08:37 BP 132/70 12/18/19 08:33 Pulse Ox 97 12/18/19 08:37 Intake & Output 12/17/19 12/18/19 12/18/19 18:59 06:59 18:59 Intake Total 1380 320 Output Total 600 450 150 Balance 780 -450 170 Weight 67.4 kg Intake: IV 20 Invasive Line 2 10 Invasive Line 3 10 Oral 1380 300 Output: Urine 600 450 150 Other: Voiding Method Urinal Urinal Urinal # Voids 1 1 - Constitutional General appearance: Present: no acute distress - Respiratory Respiratory: bilateral: diminished - Cardiovascular Rhythm: irregularly irregular Heart sounds: normal: S1, S2 - Labs CBC & Chem 7: 12/17/19 05:45 12/17/19 05:45 Labs: Abnormal Lab Results - Last 24 Hours (Table) 12/17/19 12/17/19 12/17/19 Range/Units 12:13 16:43 20:28 POC Glucose (mg/dL) 174 H 235 H 229 H (75-99) mg/dL 12/18/19 Range/Units 07:03 POC Glucose (mg/dL) 124 H (75-99) mg/dL Assessment and Plan Assessment: Assessment #1 right arm and right leg numbness of unknown etiology at this point #2 long-standing persistent atrial fibrillation was controlled heart rate Plan #1 continue the current medical regimen including oral anticoagulation #2 the patient can be discharged home
[2019-12-18 12:07] VITALS: BP 120/75; PULSE 89; RESP 16; TEMP 98.3
[2019-12-18 12:10] LABS: Glucose,Whole Blood 158 mg/dL (75-99)
--- NOTE | 2019-12-18 12:38 | P.DS ---
Providers Date of admission: 12/13/19 20:38 Expected date of discharge: 12/18/19 Attending physician: China Bond Consults: 12/13/19 20:37 Consult Physician Urgent Consulting Provider: [facility] Consult Reason/Comments: afib with slow ventricular response, hyperkalemia Do you want consulting provider notified?: Yes 12/15/19 12:41 Consult Physician Urgent Consulting Provider: Lara Christian Consult Reason/Comments: stroke Do you want consulting provider notified?: Yes 12/16/19 11:55 Consult Physician Routine Consulting Provider: Dyllan Donald Consult Reason/Comments: evaluation for inpatient rehab Do you want consulting provider notified?: Yes Primary care physician: Maricarmen Tellez [facility] Course: Final diagnosis Weakness and numbness of the right side of the face and dysarthria, left hemispheric stroke with acute cerebrovascular accident Dehydration with acute renal failure, acute tubular necrosis, present on admission Atrial fibrillation with bradycardia hyponatremia, improved Hyperkalemia, improved Thrombocytopenia Elevated TSH and free T4 indicating sick euthyroid syndrome History of atrial fibrillation, chronic history of congestive heart failure, chronic diastolic dysfunction, recent echo on 12/14/2019 shows overall left ventricular systolic function is low to normal with an EF between 50 and 55% Chronic obstructive pulmonary disease Diabetes mellitus type 2 [place] of hearing hypertension Gait dysfunction Hyperlipidemia history of gallstone pancreatitis History of nonsustained ventricular tachycardia history of benign prostatic hypertrophy history of cholecystectomy History of ERCP History of nicotine dependence Full code Discharge disposition Patient is being discharged in a stable condition with guarded prognosis to [facility] inpatient rehab facility. Patient will follow-up with Dr. Tellez upon discharge. Total time taken is greater than 35 minutes. History of present illness This is an 79-year-old male who was recently admitted with Difficulty in speaking, possible stroke along with some dizziness and was being closely monitored. Patient was evaluated by cardiology For atrial fibrillation with bradycardia. Patient underwent echo Showing overall left ventricular systolic function is low to normal with an EF between 50 and 55% with some mild to moderate mitral regurgitation along with mild tricuspid regurgitation present, and mild to moderate pulmonary hypertension. Patient to continue on anticoagulant. Patient to continue with current medications. Patient was also seen and evaluated by neurology and underwent a CT of the head showing no intracranial abnormality, CTA showed No Significant stenosis in either carotid system with a normal [place]. Patient underwent an MRI of the brain sh owing a small focus of acute edema involving the left thalamus compatible with acute vascular insult and evidence of mild periventricular white matter ischemic demyelination, ventricles, basal cisterns, and foci overlying the cerebral convexities are mildly enlarged. Patient continue to have some right upper and lower extremity weakness with some tingling and numbness noted to the right lower extremity and continue to have gait dysfunction. Patient was seen and evaluated by Dr. Donald and will be going to [facility] inpatient rehab for continued PT/OT therapy. Currently no reports of chest pain, shortness of breath, or palpitations. Patient is afebrile. No reports of nausea or vomiting and patient is tolerating diet. Patient will be transferred to [facility] rehab today On exam vital signs are stable. Temp is 98.3F, pulse is 89, respirations are 16, blood pressure is 120/75, oxygen saturation is 95% on room air. Cardio S1, S2 are muffled. Respiratory shows diminished breath sounds at the bases with No wheezing or rhonchi noted. Abdomen is soft and nontender. Nervous system shows mild diffuse weakness. Please refer to medication reconciliation sheet for a list of medications. Patient Condition at Discharge: Stable Plan - Discharge Summary Discharge Rx Participant: No New Discharge Prescriptions: New Aspirin 81 mg PO DAILY #0 chew INSULIN ASPART (NovoLOG) [NovoLOG (formulary)] 0 unit SQ ACHS vial Continue Fluticasone Nasal [place] [Flonase Nasal [place]] 2 spray EA NOSTRIL DAILY PRN PRN Reason: Congestion Losartan Potassium [Cozaar] 50 mg PO BID Albuterol Sulfate [Ventolin HFA] 2 puff INHALATION RT-Q6H PRN PRN Reason: Shortness Of Breath Furosemide [Lasix] 40 mg PO DAILY Cholecalciferol [Vitamin D3 (25 Mcg = 1000 Iu)] 1,000 unit PO DAILY Atorvastatin [Lipitor] 40 mg PO DAILY Pioglitazone [Actos] 15 mg PO DAILY Apixaban [Eliquis] 5 mg PO BID Insulin Glargine,Hum.rec.anlog [Lantus Solostar] 15 unit SQ DAILY Discontinued Metoprolol Tartrate [Lopressor] 25 mg PO DAILY metFORMIN HCL [Glucophage] 500 mg PO BID-W/MEALS Discharge Medication List Fluticasone Nasal [place] [Flonase Nasal [place]] 2 spray EA NOSTRIL DAILY PRN 04/13/16 [History] Losartan Potassium [Cozaar] 50 mg PO BID 04/13/16 [History] Albuterol Sulfate [Ventolin HFA] 2 puff INHALATION RT-Q6H PRN 06/23/16 [History] Furosemide [Lasix] 40 mg PO DAILY 06/07/17 [History] Apixaban [Eliquis] 5 mg PO BID 12/13/19 [History] Atorvastatin [Lipitor] 40 mg PO DAILY 12/13/19 [History] Cholecalciferol [Vitamin D3 (25 Mcg = 1000 Iu)] 1,000 unit PO DAILY 12/13/19 [History] Insulin Glargine,Hum.rec.anlog [Lantus Solostar] 15 unit SQ DAILY 12/13/19 [History] Pioglitazone [Actos] 15 mg PO DAILY 12/13/19 [History] Aspirin 81 mg PO DAILY #0 chew 12/18/19 [Rx] INSULIN ASPART (NovoLOG) [NovoLOG (formulary)] 0 unit SQ ACHS vial 12/18/19 [Rx] Follow up Appointment(s)/Referral(s): Maricarmen Tellez III, MD [Primary Care Provider] - 1-2 days [facility] Visiting Nurse, [NON-STAFF] - 1-2 Days Activity/Diet/Wound Care/Special Instructions: Patient is going to [facility] inpatient rehab Activity as tolerated Continue current diet Continue monitoring blood sugars before meals at bedtime treat accordingly with sliding scale Follow-up with primary care provider upon discharge Discharge Disposition: OTHER INSTITUTION NOT DEFINED
== END 2019-12-18 15:37 | DRG 64 ==
LOC: EC 17:56 → 3SCARD 20:38
PROVIDERS: ADMIT Hospitalist; ATTEND Hospitalist
DX: I63.9 Cerebral infarction, unspecified (principal); N17.0 Acute kidney failure with tubular necrosis; G93.6 Cerebral edema; I50.42 Chronic combined systolic (congestive) and diastolic (congestive) heart failure; I48.21 Permanent atrial fibrillation; E11.52 Type 2 diabetes mellitus with diabetic peripheral angiopathy with gangrene; E87.1 Hypo-osmolality and hyponatremia; G81.91 Hemiplegia, unspecified affecting right dominant side; I48.92 Unspecified atrial flutter; J44.9 Chronic obstructive pulmonary disease, unspecified; N40.0 Benign prostatic hyperplasia without lower urinary tract symptoms; R40.2363 Coma scale, best motor response, obeys commands, at hospital admission; R40.2143 Coma scale, eyes open, spontaneous, at hospital admission; R40.2253 Coma scale, best verbal response, oriented, at hospital admission; L03.032 Cellulitis of left toe; I44.30 Unspecified atrioventricular block; Z11.59 Encounter for screening for other viral diseases; D69.6 Thrombocytopenia, unspecified; E78.5 Hyperlipidemia, unspecified; I11.0 Hypertensive heart disease with heart failure; E87.5 Hyperkalemia; E86.0 Dehydration; E07.81 Sick-euthyroid syndrome; H91.93 Unspecified hearing loss, bilateral; R29.701 NIHSS score 1; R26.9 Unspecified abnormalities of gait and mobility; I65.29 Occlusion and stenosis of unspecified carotid artery; I08.0 Rheumatic disorders of both mitral and aortic valves; I27.20 Pulmonary hypertension, unspecified; Z96.1 Presence of intraocular lens; Z79.01 Long term (current) use of anticoagulants; Z79.84 Long term (current) use of oral hypoglycemic drugs; Z79.899 Other long term (current) drug therapy; Z91.09 Other allergy status, other than to drugs and biological substances; Z98.41 Cataract extraction status, right eye; Z98.42 Cataract extraction status, left eye; Z87.891 Personal history of nicotine dependence; Z90.49 Acquired absence of other specified parts of digestive tract; Z95.5 Presence of coronary angioplasty implant and graft; Z87.01 Personal history of pneumonia (recurrent); Z98.890 Other specified postprocedural states; Z82.49 Family history of ischemic heart disease and other diseases of the circulatory system; Z83.6 Family history of other diseases of the respiratory system; Z86.19 Personal history of other infectious and parasitic diseases
CPT/HCPCS: 36415; 70450; 70496; 70498; 70553; 71046; 80048; 80053; 80061; 81001; 82550; 83036; 83735; 83880; 84439; 84443; 84484; 85025; 85610; 85730; 93005; 93306; 93880; 96374; 96375; 99285